=== PATIENT | female | born 1990 | race Caucasian/White ===

== ENCOUNTER 2019-03-09 13:50 | Emergency (ER) | payer OTHER ==
[2019-03-09 16:34] LABS: Absolute Lymphocytes (CBC) 2.4 K/uL (0.7-4.9); Basophils % 0.5 % (0-1.3); Hematocrit 43.9 % (36.0-45.0); Lymphocytes % 38.8 % (15.3-44.8); MPV 8.3 fL (7.6-11.3); RBC Red Blood Cell Count 4.89 M/uL (3.86-4.86)
[2019-03-09 16:52] LABS: ALT/SGPT 25 U/L (12-78); AST/SGOT 24 U/L (15-37); Albumin 4.1 g/dL (3.4-5.0); Alkaline Phosphatase 68 U/L (45-117); BUN Blood Urea Nitrogen 15 mg/dL (7-18); Bicarbonate 26 mmol/L (21-32); Bilirubin Direct 0.1 mg/dL (0-0.2); Bilirubin Total 0.3 mg/dL (0.2-1.0); Glucose Level 85 mg/dL (74-106); Magnesium 2.1 mg/dL (1.8-2.4); NT PRO-BNP 19 pg/mL (<125); Protein, Total 8.1 g/dL (6.4-8.2); Sodium Level 141 mmol/L (136-145); Troponin (Emerg Dept Use Only) < 0.02 ng/mL (0.0-0.045)
--- NOTE | 2019-03-09 16:57 | EKG ---
Test Date: 2019-03-09 Test Time: 16:21:00 Compliance Tester: MICHAEL MEASUREMENT RESULTS: Intervals: Rate: 73 ME: 152 QRSD: 84 QT: 368 QTc: 405 [place]: P: 31 ME: 152 QRS: 51 T: 20 INTERPRETIVE STATEMENTS: Normal sinus rhythm with sinus arrhythmia Normal ECG Compared to ECG 08/12/1991 11:50:00 No significant changes Electronically Signed On 03-09-19 16:56:38 CDT by Luther Moore
--- NOTE | 2019-03-09 17:05 | RAD REPORT ---
EXAM DESCRIPTION: RAD - Chest Single View - 03/09/2019 4:22 pm CLINICAL HISTORY: Chest pain, left-sided chest and shoulder pain COMPARISON: None. TECHNIQUE: AP portable chest image was obtained 1618 hours . FINDINGS: Lungs are clear. Heart and vasculature are normal. No measurable pleural effusion and no p neumothorax. No acute bony abnormality seen. No acute aortic findings suspected. IMPRESSION: No acute cardiopulmonary process.
--- NOTE | 2019-03-09 17:35 | ER ---
Nurse's Notes [facility] Name: Kassy Callahan Age: 28 yrs Sex: Female : 1990 Arrival Date: 03/09/2019 Time: 13:52 Bed 19 Private MD: Diagnosis: Pain in left shoulder;Pain in left upper arm Presentation: 03/09 14:07 Presenting complaint: Intermittent sharp pain in left shoulder blade that radiates to hb left side of neck, left arm and hand since yesterday. Transition of care: patient was not received from another setting of care. Onset of symptoms was March 08, 2019. Risk Assessment: Do you want to hurt yourself or someone else? Patient reports no desire to harm self or others. Initial Sepsis Screen: Does the patient meet any 2 criteria? No. Patient's initial sepsis screen is negative. Does the patient have a suspected source of infection? No. Patient's initial sepsis screen is negative. Care prior to arrival: None. 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 - Social history:: Smoking status: Patient/guardian denies using tobacco. - Ebola Screening: : No symptoms or risks identified at this time. Screenin:20 Abuse screen: Denies threats or abuse. Denies injuries from another. Nutritional ca1 screening: No deficits noted. Tuberculosis screening: No symptoms or risk factors identified. Fall Risk None identified. Assessment: 14:20 General: Appears in no apparent distress. comfortable, Behavior is calm, cooperative, ca1 appropriate for age. Pain: Complains of pain in left scapular area Pain radiates to left sternocleidomastoid, L shoulder Pain currently is 4 out of 10 on a pain scale. at worst was 8 out of 10 on a pain scale. Quality of pain is described as sharp, Pain began 1 day ago. Is intermittent. Neuro: Level of Consciousness is awake, alert, obeys commands, Oriented to person, place, time, situation, Appropriate for age. Cardiovascular: Heart tones S1 S2 present Capillary refill < 3 seconds Patient's skin is warm and dry. Pulses are all present. Respiratory: Airway is patent Respiratory effort is even, unlabored, Respiratory pattern is regular, symmetrical, Breath sounds are clear bilaterally. GI: Abdomen is flat, non-distended, Bowel sounds present X 4 quads. Abd is soft and non tender X 4 quads. : No deficits noted. No signs and/or symptoms were reported regarding the genitourinary system. EENT: No deficits noted. No signs and/or symptoms were reported regarding the EENT system. Derm: Skin is intact, is healthy with good turgor, Skin is pink, warm \T\ dry. Musculoskeletal: Circulation, motion, and sensation intact. Capillary refill < 3 seconds, Range of motion: intact in all extremities. 15:40 Reassessment: Patient appears in no apparent distress at this time. Patient and/or ca1 family updated on plan of care and expected duration. Pain level reassessed. Patient is alert, oriented x 3, equal unlabored respirations, skin warm/dry/pink. 16:56 Reassessment: Patient appears in no apparent distress at this time. Patient and/or ca1 family updated on plan of care and expected duration. Pain level reassessed. Patient is alert, oriented x 3, equal unlabored respirations, skin warm/dry/pink. 17:47 Reassessment: Patient appears in no apparent distress at this time. Patient is alert, ca1 oriented x 3, equal unlabored respirations, skin warm/dry/pink. Dr. Fernando at bedside. Vital Signs: 14:09 BP 142 / 96; Pulse 85; Resp 16; Temp 97.9; Pulse Ox 100% on R/A; Weight 83.91 kg; hb Height 5 ft. 5 in. (165.10 cm); Pain 5/10; 14:20 BP 133 / 99; Pulse 76; Resp 17 S; Pulse Ox 99% on R/A; ca1 15:46 BP 134 / 92; Pulse 77; Resp 16; Pulse Ox 100% on R/A; mh5 16:56 BP 145 / 105; Pulse 95; Resp 17; Temp 98.1(O); Pulse Ox 99% on R/A; mh5 17:47 BP 135 / 84; Pulse 87; Resp 17 S; Pulse Ox 98% on R/A; ca1 14:09 Body Mass Index 30.79 (83.91 kg, 165.10 cm) ED Course: 13:52 Patient arrived in ED. rg4 14:09 Triage completed. hb 14:10 Arm band placed on. hb 14:11 Nichole Barajas, JOSE is Primary Nurse. ca1 14:19 Richy Fernando MD is Attending Physician. kdr 14:20 Patient has correct armband on for positive identification. Bed in low position. Call ca1 light in reach. Side rails up X 1. Pulse ox on. NIBP on. Warm blanket given. 14:20 No provider procedures requiring assistance completed. ca1 16:12 Inserted saline lock: 22 gauge in right antecubital area, using aseptic technique. ca1 Blood collected. 16:27 XRAY Chest (1 view) In Process Unspecified. EDMS 16:44 EKG done, by archives technician. reviewed by Richy Fernando MD. 3 17:51 IV discontinued, intact, bleeding controlled, No redness/swelling at site. Pressure ca1 dressing applied. Administered Medications: No medications were administered Outcome: 17:34 Discharge ordered by . kdr 17:51 Discharged to home ambulatory. ca1 17:51 Condition: stable 17:51 Discharge instructions given to patient, Instructed on discharge instructions, follow up and referral plans. no driving heavy equipment, medication usage, Demonstrated understanding of instructions, follow-up care, medications, Prescriptions given X 1. 17:51 Patient left the ED. ca1 Signatures: Dispatcher [employer] EDCA Richy Fernando MD MD kdr Baxter, Heather, RN RN Rosalva Kimbrough rg4 Gloria Dias [facility] [place] sm3 Nichole Barajas RN RN ca1
--- NOTE | 2019-03-09 17:35 | EDPHYS ---
Physician Documentation [facility] Name: Kassy Callahan Age: 28 yrs Sex: Female : 1990 Arrival Date: 03/09/2019 Time: 13:52 Bed 19 Private MD: ED Physician Richy Fernando HPI: 03/09 18:07 This 28 yrs old Female presents to ER via Ambulatory with complaints of kdr Shoulder Pain, Arm Pain. 18:07 The patient or guardian complains of pain. left shoulder and left trapezius - left kdr upper arm and shoulder. Context: The problem was sustained at home, at work, resulted from an unknown reason, The patient reports no decreased range of motion. The patient reports no obvious deformity. Onset: The symptoms/episode began/occurred The patient has had intermittent shooting pain in her left shoulder and upper arm. These episodes started yesterday evening and she has had three total episodes since then., She denies SOB, diaphoresis but has had some mild nausea when the pain is at it's worst. The pain had improved though not completely resolved on presentation to the ED. Modifying factors: the symptoms are alleviated by nothing. The symptoms are aggravated by nothing. Associated signs and symptoms: The patient has no apparent associated signs or symptoms. Severity of symptoms: At their worst the symptoms were moderate, severe, earlier today, in the emergency department the symptoms have improved, markedly. Treatment prior to arrival includes: over the counter medications. The patient has not experienced similar symptoms in the past. The patient has not recently seen a physician. 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 - Social history:: Smoking status: Patient/guardian denies using tobacco. - Ebola Screening: : No symptoms or risks identified at this time. ROS: 18:07 Constitutional: Negative for fever, chills, and weight loss, Cardiovascular: Negative kdr for chest pain, palpitations, and edema, Respiratory: Negative for shortness of breath, cough, wheezing, and pleuritic chest pain, Abdomen/GI: Negative for abdominal pain, nausea, vomiting, diarrhea, and constipation, Back: Negative for injury and pain, : Negative for injury, bleeding, discharge, and swelling, Skin: Negative for injury, rash, and discoloration, Neuro: Negative for headache, weakness, numbness, tingling, and seizure activity. 18:07 MS/extremity: Positive for pain, Negative for abrasion, bite, contusion, decreased range of motion, swelling, tenderness, tingling. Exam: 18:07 Constitutional: This is a well developed, well nourished patient who is awake, alert, kdr and in no acute distress. Head/Face: Normocephalic, atraumatic. Eyes: Pupils equal round and reactive to light, extra-ocular motions intact. Lids and lashes normal. Conjunctiva and sclera are non-icteric and not injected. Cornea within normal limits. Periorbital areas with no swelling, redness, or edema. Neck: Trachea midline, no thyromegaly or masses palpated, and no cervical lymphadenopathy. Supple, full range of motion without nuchal rigidity, or vertebral point tenderness. No Meningismus. Chest/axilla: Normal chest wall appearance and motion. Nontender with no deformity. No lesions are appreciated. Cardiovascular: Regular rate and rhythm with a normal S1 and S2. No gallops, murmurs, or rubs. Normal PMI, no JVD. No pulse deficits. Respiratory: Lungs have equal breath sounds bilaterally, clear to auscultation and percussion. No rales, rhonchi or wheezes noted. No increased work of breathing, no retractions or nasal flaring. Abdomen/GI: Soft, non-tender, with normal bowel sounds. No distension or tympany. No guarding or rebound. No evidence of tenderness throughout. Back: No spinal tenderness. No costovertebral tenderness. Full range of motion. Skin: Warm, dry with normal turgor. Normal color with no rashes, no lesions, and no evidence of cellulitis. MS/ Extremity: Pulses equal, no cyanosis. Neurovascular intact. Full, normal range of motion. Neuro: Awake and alert, GCS 15, oriented to person, place, time, and situation. Cranial nerves II-XII grossly intact. Motor strength 5/5 in all extremities. Sensory grossly intact. Cerebellar exam normal. Normal gait. Psych: Awake, alert, with orientation to person, place and time. Behavior, mood, and affect are within normal limits. Vital Signs: 14:09 BP 142 / 96; Pulse 85; Resp 16; Temp 97.9; Pulse Ox 100% on R/A; Weight 83.91 kg; hb Height 5 ft. 5 in. (165.10 cm); Pain 5/10; 14:20 BP 133 / 99; Pulse 76; Resp 17 S; Pulse Ox 99% on R/A; ca1 15:46 BP 134 / 92; Pulse 77; Resp 16; Pulse Ox 100% on R/A; mh5 16:56 BP 145 / 105; Pulse 95; Resp 17; Temp 98.1(O); Pulse Ox 99% on R/A; mh5 17:47 BP 135 / 84; Pulse 87; Resp 17 S; Pulse Ox 98% on R/A; ca1 14:09 Body Mass Index 30.79 (83.91 kg, 165.10 cm) hb MDM: 17:34 Patient medically screened. kdr 18:07 Data reviewed: vital signs, nurses notes, lab test result(s), EKG, radiologic studies. kdr Counseling: I had a detailed discussion with the patient and/or guardian regarding: the historical points, exam findings, and any diagnostic results supporting the discharge/admit diagnosis, lab results, radiology results, the need for outpatient follow up. 03/09 16:03 Order name: Basic Metabolic Panel; Complete Time: 17:27 [facility] 03/09 16:03 Order name: CBC with Diff; Complete Time: 17:27 [facility] 03/09 16:03 Order name: LFT's; Complete Time: 17:27 [facility] 03/09 16:03 Order name: Magnesium; Complete Time: 17:27 [facility] 03/09 16:03 Order name: NT PRO-BNP; Complete Time: 17:27 [facility] 03/09 16:03 Order name: PT-INR; Complete Time: 17:27 [facility] 03/09 16:03 Order name: Troponin (emerg Dept Use Only); Complete Time: 17:27 [facility] 03/09 16:03 Order name: XRAY Chest (1 view); Complete Time: 17:27 [facility] 03/09 16:03 Order name: EKG; Complete Time: 16:04 [facility] 03/09 16:03 Order name: Cardiac monitoring; Complete Time: 16:16 kdr 03/09 16:03 Order name: EKG - Nurse/Tech; Complete Time: 16:16 kdr 03/09 16:03 Order name: IV Saline Lock; Complete Time: 16:16 kdr 03/09 16:03 Order name: Labs collected and sent; Complete Time: 16:16 kdr 03/09 16:03 Order name: O2 Per Protocol; Complete Time: 16:16 kdr 03/09 16:03 Order name: O2 Sat Monitoring; Complete Time: 16:16 kdr Administered Medications: No medications were administered Disposition: 03/09/19 17:34 Discharged to Home. Impression: Pain in left shoulder, Pain in left upper arm. - Condition is Stable. - Discharge Instructions: Musculoskeletal Pain, Pain Without a Known Cause, Shoulder Pain, Shoulder Pain, [id number]. - Prescriptions for Tramadol 50 mg Oral Tablet - take 1 tablet by ORAL route every 8 hours as needed; 12 tablet. - Medication Reconciliation Form, Thank You Letter form. - Follow up: Private Physician; When: 2 - 3 days; Reason: If symptoms return, Further diagnostic work-up, Recheck today's complaints, Continuance of care, Re-evaluation by your physician. - Problem is an acute exacerbation. - Symptoms have improved. Signatures: Dispatcher [employer] EDMS Richy Fernando MD MD [facility] Eli Hilton RN RN Nichole Barajas RN RN ca1 Corrections: (The following items were deleted from the chart) 17:51 17:34 03/09/2019 17:34 Discharged to Home. Impression: Pain in left shoulder; Pain in ca1 left upper arm. Condition is Stable. Forms are Medication Reconciliation Form, Thank You Letter, Antibiotic Education, Prescription Opioid Use. Follow up: Private Physician; When: 2 - 3 days; Reason: If symptoms return, Further diagnostic work-up, Recheck today's complaints, Continuance of care, Re-evaluation by your physician. Problem is an acute exacerbation. Symptoms have improved. kdr
[2019-03-09 18:19] VITALS: TEMP 98.1
[2019-03-09 18:20] VITALS: BP 135/84; O2SAT 98
== END 2019-03-09 17:51 | disposition home or self-care (01) ==
LOC: ER 13:50
DX: M79.622 Pain in left upper arm (principal); Z91.013 Allergy to seafood
CPT/HCPCS: 36415; 71045; 80048; 80076; 83735; 83880; 84484; 85025; 85610; 93005; 99284

== ENCOUNTER 2019-09-04 09:55 | Emergency (ER) | payer OTHER ==
[2019-09-04] MEDS ORDERED: MAGNE/ALUM HYDROXD 30 ML UCUP ONE (10:20)
[2019-09-04] MEDS ORDERED: LIDOCAINE VISCOUS 2% SOLN 15 ML UDC ONE (10:21)
[2019-09-04] MEDS ORDERED: ONDANSETRON 4 MG/2 ML VIAL ONE (10:21)
[2019-09-04 10:35] LABS: Urine Blood NEGATIVE (NEG); Urine Glucose NEGATIVE (NEG); Urine Protein NEGATIVE (NEG); Urine Specific Gravity 1.025 (1.005-1.030)
[2019-09-04 10:56] LABS: Absolute Lymphocytes (CBC) 2.1 K/uL (0.7-4.9); Basophils % 0.2 % (0-1.3); Hematocrit 40.6 % (36.0-45.0); Lymphocytes % 26.6 % (15.3-44.8); MPV 8.5 fL (7.6-11.3); RBC Red Blood Cell Count 4.67 M/uL (3.86-4.86)
[2019-09-04 11:08] LABS: ALT/SGPT 36 U/L (12-78); AST/SGOT 25 U/L (15-37); Albumin 3.7 g/dL (3.4-5.0); Alkaline Phosphatase 66 U/L (45-117); BUN Blood Urea Nitrogen 14 mg/dL (7-18); Bicarbonate 24 mmol/L (21-32); Bilirubin Direct < 0.1 mg/dL (0-0.2); Bilirubin Total 0.2 mg/dL (0.2-1.0); Glucose Level 91 mg/dL (74-106); Lipase 142 U/L (73-393); Potassium 4.1 mmol/L (3.5-5.1); Protein, Total 7.5 g/dL (6.4-8.2); Sodium Level 138 mmol/L (136-145)
--- NOTE | 2019-09-04 11:14 | ER ---
Nurse's Notes [facility] Name: Kassy Callahan Age: 28 yrs Sex: Female : 1990 Arrival Date: 09/04/2019 Time: 09:58 Bed 13 Private MD: Diagnosis: Upper abdominal pain, unspecified Presentation: 09/03 10:09 Chief complaint: Patient states: Intermittent, sharp epigastric pain that radiates ss towards R shoulder and R side of back that began at 0130 this morning. Coronavirus screen: The patient has NOT traveled to a country currently being monitored by the [facility] within the last 14 days. Ebola Screen: Patient denies exposure to infectious person. Patient denies travel to an Ebola-affected area in the 21 days before illness onset. Initial Sepsis Screen: Does the patient meet any 2 criteria? No. Patient's initial sepsis screen is negative. Does the patient have a suspected source of infection? No. Patient's initial sepsis screen is negative. Risk Assessment: Do you want to hurt yourself or someone else? Patient reports no desire to harm self or others. 10:09 Method Of Arrival: Ambulatory ss 10:09 Acuity: MARION 3 ss Historical: - Allergies: 10:12 SHELLFISH; ss - Home Meds: 10:12 control [Active]; ss - PMHx: 10:12 PCOS; Protruding Discs L4-L5; ss - PSHx: 10:12 Appendectomy; ss - Immunization history:: Adult Immunizations up to date. - Social history:: Smoking status: Patient denies any tobacco usage or history of. Screenin:00 Abuse screen: Denies threats or abuse. Denies injuries from another. Nutritional ph screening: No deficits noted. Tuberculosis screening: No symptoms or risk factors identified. Fall Risk None identified. Assessment: 11:00 Pain: Complains of pain in epigastric area Pain radiates to right upper quadrant. ph Neuro: Level of Consciousness is awake, alert, obeys commands, Oriented to person, place, time, situation. Cardiovascular: Capillary refill < 3 seconds in bilateral fingers Patient's skin is warm and dry. Respiratory: Airway is patent Respiratory effort is even, unlabored, Respiratory pattern is regular, symmetrical. GI: Bowel sounds present X 4 quads. Abd is soft X 4 quads Reports upper abdominal pain, epigastric pain, nausea, vomiting, Patient currently denies constipation, diarrhea. Derm: Skin is intact, is healthy with good turgor, Skin is pink, warm \T\ dry. Musculoskeletal: Circulation, motion, and sensation intact. Range of motion: intact in all extremities. Vital Signs: 10:07 BP 144 / 98; Pulse 108; Resp 14; Temp 97.0(TE); Pulse Ox 98% on R/A; Weight 83.91 kg; Height 5 ft. 5 in. (165.10 cm); Pain 3/10; 10:45 BP 138 / 103; Pulse 95; Resp 15; Temp 97.2(TE); Pulse Ox 98% ; mh5 10:07 Body Mass Index 30.79 (83.91 kg, 165.10 cm) ED Course: 09:58 Patient arrived in ED. mr 10:00 Paul Paiz PA is PHCP. jr8 10:00 Rosalino Lentz MD is Attending Physician. jr8 10:07 Arm band placed on right wrist. 10:12 Kesha Mcmanus, RN is Primary Nurse. ph 10:12 Triage completed. 10:42 Basic Metabolic Panel Sent. [facility] 10:42 CBC with Diff Sent. [facility] 10:42 Creatinine for Radiology Sent. [facility] 10:43 Hepatic Function Sent. 5 10:43 Lipase Sent. 5 10:43 Lab(s) recollected, by me, sent to lab. Inserted saline lock: 22 gauge in right 5 antecubital area, using aseptic technique. Blood collected. 10:44 Patient has correct armband on for positive identification. Bed in low position. Call [facility] light in reach. Side rails up X 1. Warm blanket given. Pulse ox on. NIBP on. 11:06 Ultrasound completed. Patient tolerated well. sg3 11:07 US Abdomen Limited In Process Unspecified. EDMS 11:13 Sonu Browning MD is Referral Physician. jr8 11:29 No provider procedures requiring assistance completed. IV discontinued, intact, ss bleeding controlled, No redness/swelling at site. Pressure dressing applied. Administered Medications: 10:45 Drug: Zofran (Ondansetron) 4 mg Route: IVP; Site: right antecubital; ph 11:15 Follow up: Response: No adverse reaction ph 10:45 Drug: GI Cocktail without - (Maalox Suspension 30 ml, Lidocaine Liquid 2 % 15 ph ml) Route: PO; 11:15 Follow up: Response: No adverse reaction ph Outcome: 11:14 Discharge ordered by MD. ball 11:29 Discharged to home ambulatory, with family. ss 11:29 Condition: good 11:29 Discharge instructions given to patient, family, Instructed on discharge instructions, follow up and referral plans. medication usage, Demonstrated understanding of instructions, follow-up care, medications, Prescriptions given X 2. 11:30 Patient left the ED. ss Signatures: Dispatcher [employer] [facility] Akhil Sherice PelaezElisha morrison, RN RN ss Paul Paiz PA PA jr8 Hall, Patricia, RN RN Gloria Dias [facility] Minda Kirkland [facility]
--- NOTE | 2019-09-04 11:14 | EDPHYS ---
Physician Documentation [facility] Name: Kassy Callahan Age: 28 yrs Sex: Female : 1990 Arrival Date: 09/04/2019 Time: 09:58 Bed 13 Private MD: RJ Physician Rosalino Lentz HPI: 09/03 10:52 This 28 yrs old Female presents to ER via Ambulatory with complaints of jr8 Abdominal Pain, Nausea. 10:52 The patient presents with abdominal pain in the upper abdomen, in the right upper jr8 quadrant. Onset: The symptoms/episode began/occurred acutely, last night. The symptoms radiate to right back, the right shoulder. Associated signs and symptoms: Pertinent positives: nausea. The symptoms are described as shooting, stabbing. Modifying factors: The symptoms are alleviated by nothing, the symptoms are aggravated by food. Severity of pain: At its worst the pain was moderate in the emergency department the pain is unchanged. The patient has not experienced similar symptoms in the past. The patient has not recently seen a physician. Historical: - Allergies: 10:12 SHELLFISH; ss - Home Meds: 10:12 control [Active]; ss - PMHx: 10:12 PCOS; Protruding Discs L4-L5; ss - PSHx: 10:12 Appendectomy; ss - Immunization history:: Adult Immunizations up to date. - Social history:: Smoking status: Patient denies any tobacco usage or history of. ROS: 10:52 Eyes: Negative for injury, pain, redness, and discharge, ENT: Negative for injury, jr8 pain, and discharge, Neck: Negative for injury, pain, and swelling, Cardiovascular: Negative for chest pain, palpitations, and edema, Respiratory: Negative for shortness of breath, cough, wheezing, and pleuritic chest pain, Back: Negative for injury and pain, MS/Extremity: Negative for injury and deformity, Skin: Negative for injury, rash, and discoloration, Neuro: Negative for headache, weakness, numbness, tingling, and seizure. 10:52 Abdomen/GI: Positive for abdominal pain, nausea, Negative for vomiting, diarrhea, constipation, abdominal cramps, abdominal distension. Exam: 10:52 Eyes: Pupils equal round and reactive to light, extra-ocular motions intact. Lids and jr8 lashes normal. Conjunctiva and sclera are non-icteric and not injected. Cornea within normal limits. Periorbital areas with no swelling, redness, or edema. ENT: Nares patent. No nasal discharge, no septal abnormalities noted. Tympanic membranes are normal and external auditory canals are clear. Oropharynx with no redness, swelling, or masses, exudates, or evidence of obstruction, uvula midline. Mucous membranes moist. Neck: Trachea midline, no thyromegaly or masses palpated, and no cervical lymphadenopathy. Supple, full range of motion without nuchal rigidity, or vertebral point tenderness. No Meningismus. Cardiovascular: Regular rate and rhythm with a normal S1 and S2. No gallops, murmurs, or rubs. Normal PMI, no JVD. No pulse deficits. Respiratory: Lungs have equal breath sounds bilaterally, clear to auscultation and percussion. No rales, rhonchi or wheezes noted. No increased work of breathing, no retractions or nasal flaring. Back: No spinal tenderness. No costovertebral tenderness. Full range of motion. Skin: Warm, dry with normal turgor. Normal color with no rashes, no lesions, and no evidence of cellulitis. MS/ Extremity: Pulses equal, no cyanosis. Neurovascular intact. Full, normal range of motion. Neuro: Awake and alert, GCS 15, oriented to person, place, time, and situation. Cranial nerves II-XII grossly intact. Motor strength 5/5 in all extremities. Sensory grossly intact. Cerebellar exam normal. Normal gait. 10:52 Abdomen/GI: Inspection: abdomen appears normal, Bowel sounds: active, all quadrants, Palpation: soft, in all quadrants, moderate abdominal tenderness, in the epigastric area and right upper quadrant, mass, is not appreciated, rebound tenderness, is not appreciated, voluntary guarding, is elicited in all quadrants, involuntary guarding, is not appreciated, no appreciated organomegaly, Indicators: McBurney's point is not tender, Tony's sign is positive, Rovsing's sign is negative, Liver: tenderness, is not appreciated. Vital Signs: 10:07 BP 144 / 98; Pulse 108; Resp 14; Temp 97.0(TE); Pulse Ox 98% on R/A; Weight 83.91 kg; ss Height 5 ft. 5 in. (165.10 cm); Pain 3/10; 10:45 BP 138 / 103; Pulse 95; Resp 15; Temp 97.2(TE); Pulse Ox 98% ; mh5 10:07 Body Mass Index 30.79 (83.91 kg, 165.10 cm) ss MDM: 10:00 Patient medically screened. 11:12 Differential diagnosis: cholecystitis, Cholelithiasis, diverticulitis, gastritis, jr8 gastroesophageal reflux disease, Hepatitis, Irritable bowel syndrome, non-specific abd pain, pancreatitis, Peptic Ulcer Disease, Perf. Duodenal Ulcer, Perf. Gastric Ulcer. Data reviewed: vital signs, nurses notes, lab test result(s), radiologic studies, ultrasound. Data interpreted: Pulse oximetry: on room air is 98 %. Interpretation: normal. Counseling: I had a detailed discussion with the patient and/or guardian regarding: the historical points, exam findings, and any diagnostic results supporting the discharge/admit diagnosis, lab results, radiology results, the need for outpatient follow up, a general surgeon, to return to the emergency department if symptoms worsen or persist or if there are any questions or concerns that arise at home. Response to treatment: the patient's symptoms have markedly improved after treatment. Special discussion: Based on the patient's Hx, exam, and Dx evaluation, there is no indication for emergent surgery or inpatient Tx. It is understood by the patient/guardian that if the Sx's persist or worsen they need to return immediately for re-evaluation. 09/03 10:04 Order name: Basic Metabolic Panel; Complete Time: 11:09/03 10:04 Order name: CBC with Diff; Complete Time: 11: 09/03 10:04 Order name: Creatinine for Radiology; Complete Time: 11:09/03 10:04 Order name: Hepatic Function; Complete Time: 11:10 09/03 10:04 Order name: Lipase; Complete Time: 11:10 09/03 10:24 Order name: Urine Dipstick--Ancillary (enter results); Complete Time: 10:40 09/03 10:04 Order name: IV Saline Lock; Complete Time: 10:43 09/03 10:04 Order name: Labs collected and sent; Complete Time: 10:43 09/03 10:04 Order name: Urine Test (obtain specimen); Complete Time: 10:42 09/03 10:04 Order name: Urine Dipstick-Ancillary (obtain specimen); Complete Time: 10:42 [facility] 09/03 10:04 Order name: US Abdomen Limited; Complete Time: 11:18 09/03 10:24 Order name: Urine --Ancillary (enter results); Complete Time: 10:40 eb Administered Medications: 10:45 Drug: Zofran (Ondansetron) 4 mg Route: IVP; Site: right antecubital; ph 11:15 Follow up: Response: No adverse reaction ph 10:45 Drug: GI Cocktail without - (Maalox Suspension 30 ml, Lidocaine Liquid 2 % 15 ph ml) Route: PO; 11:15 Follow up: Response: No adverse reaction ph Disposition: 09/04 09:37 Co-signature as Attending Physician, Rosalino Lentz MD I agree with the assessment and pina plan of care. Disposition: 09/04/19 11:14 Discharged to Home. Impression: Upper abdominal pain, unspecified. - Condition is Stable. - Discharge Instructions: Abdominal Pain, Adult. - Prescriptions for omeprazole 40 mg Oral capsule,delayed release(DR/EC) - take 1 capsule by ORAL route once daily before a meal; 30 capsule. Zofran 4 mg Oral Tablet - take 1 tablet by ORAL route every 12 hours As needed; 20 tablet. - Medication Reconciliation Form, Thank You Letter, Antibiotic Education, Prescription Opioid Use form. - Follow up: Sonu Browning MD; When: 5 - 6 days; Reason: Recheck today's complaints, Continuance of care, Re-evaluation by your physician. - Problem is new. - Symptoms have improved. Signatures: Dispatcher [employer] Rosalino Baer MD MD cha Smirch, Shelby, RN RN ss Paul Paiz, PA PA jr8 Kesha Mcmanus RN RN ph Corrections: (The following items were deleted from the chart) 09/03 11:30 11:14 09/04/2019 11:14 Discharged to Home. Impression: Upper abdominal pain, ss unspecified. Condition is Stable. Forms are Medication Reconciliation Form, Thank You Letter, Antibiotic Education, Prescription Opioid Use. Follow up: Sonu Browning; When: 5 - 6 days; Reason: Recheck today's complaints, Continuance of care, Re-evaluation by your physician. Problem is new. Symptoms have improved. jr8
--- NOTE | 2019-09-04 11:16 | RAD REPORT ---
EXAM DESCRIPTION: US - Abdomen Exam Limited - 09/04/2019 11:06 am CLINICAL HISTORY: r/o GB;Abd pain COMPARISON: Stone Protocol dated 03/20/2017 FINDINGS: No gallstones are identified in a normal size gallbladder. Sludge is present. There is no wall thickening or pericholecystic fluid. No common duct stone or biliary tree dilatation identified. Fatty infiltration of the liver is present with sparing at the gallbladder fossa. IMPRESSION: Gallbladder sludge is present with no gallstones identifiable. No other gallbladder or biliary tree finding. Fatty infiltration of the liver.
[2019-09-04 11:39] VITALS: BP 138/103; TEMP 97.2; O2SAT 98
== END 2019-09-04 11:30 | disposition home or self-care (01) ==
LOC: ER 09:55
DX: R10.10 Upper abdominal pain, unspecified (principal); Z91.013 Allergy to seafood
CPT/HCPCS: 85025; 80048; 36415; 81025; 80076; 81003; 83690; 76705; 96374; 99284; J2405

== ENCOUNTER 2019-10-24 07:10 | Day surgery (SDC) | payer OTHER ==
[2019-10-24 07:37] LABS: Specific Gravity > 1.030 (1.005-1.030)
[2019-10-24] MEDS: Ringers Lactate 1,000 ML IV ONE (07:40)
[2019-10-24] MEDS ORDERED: CEFOXITIN/SWI 1gm 1 GM/10 ML SYR ONE (07:52)
[2019-10-24] MEDS ORDERED: MIDAZOLAM HCL 2 MG/2 ML INJ ONE (08:18)
[2019-10-24] MEDS ORDERED: LIDOCAINE 2% MPF 5 ML VIAL ONE (08:18)
[2019-10-24] MEDS ORDERED: FENTANYL CITR 100 MCG/2 ML ONE (08:18)
[2019-10-24] MEDS ORDERED: KETOROLAC 30 MG/ML INJ ONE (08:18)
[2019-10-24] MEDS ORDERED: dexAMETHasone 10 MG/ML VIAL ONE (08:18)
[2019-10-24] MEDS ORDERED: ONDANSETRON 4 MG/2 ML VIAL ONE (08:18)
[2019-10-24] MEDS ORDERED: propofoL 200 MG/20 ML VIAL IV ONE (08:18)
[2019-10-24] MEDS ORDERED: ROCURONIUM 50 MG/5 ML VIAL IV ONE (08:19)
[2019-10-24] MEDS ORDERED: BUPIVACA 0.25%/EPI 0.0005%/PF 30 ML VIAL ONE (08:22)
[2019-10-24] MEDS ORDERED: EPHEDRINE SULF 50 MG/ML VIAL ONE (09:16)
[2019-10-24] MEDS ORDERED: GLYCOPYRROLATE 0.2 MG/ML SYR ONE (09:54)
[2019-10-24] MEDS ORDERED: NEOSTIGMINE 1 MG/ML -5 ML ONE (09:54)
--- NOTE | 2019-10-24 10:01 | P.OP ---
Preoperative diagnosis: Chronic Cholecystitis Postoperative diagnosis: Chronic Cholecystitis Primary procedure: Laparoscopic Cholecystectomy Anesthesia: GETA + Local Estimated blood loss: <5cc Specimen: Gallbladder Findings: Thick fibrous adhesions @ hartmanns, triangle of calot Complications: None Transferred to: Recovery Room Condition: Good
[2019-10-24] MEDS ORDERED: Ringers Lactate 1,000 ML IV ONE (10:13)
[2019-10-24] MEDS: HYDROMORPHONE HCL 1 MG/ML INJ ONE ×6 (10:29→10:58)
[2019-10-24] MEDS ORDERED: PROMETHAZINE INJ 25 MG/ML AMP ONE (10:57)
[2019-10-24] MEDS ORDERED: HYDROCODONE/APAP 5/325 MG TAB ONE (11:42)
[2019-10-24 12:45] VITALS: BP 137/84; TEMP 96.9; O2SAT 100
--- NOTE | 2019-10-24 21:25 | OP ---
Date of Procedure: 10/24/2019 Surgeon: Sonu Browning MD, Preoperative Diagnosis: Chronic cholecystitis. Postoperative Diagnosis: Chronic cholecystitis. Procedure Performed: Laparoscopic cholecystectomy. Anesthesia: General endotracheal plus local 0.5% Marcaine with epinephrine. Estimated Blood Loss: Less than 5 mL. Specimen: Gallbladder. 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 Complications: None. Disposition: Transferred recovery in good condition. Procedure In Detail: After informed was obtained, patient was brought to the operating room, prepped and draped in the usual sterile fashion. After adequate anesthesia achieved, a supraumbilical area was anesthetized with 0.5% Marcaine and sharply incised and a 5 mm trocar was introduced in the abdom en without evidence of complication. Insufflation was obtained to 15 mmHg at this time. There was n o injury to vital structures upon entry the abdomen. Two additional trocar sites were chosen, one in the epigastrium, one in the right upper quadrant. This was similarly anesthetized, sharply incised. A 5 mm trocar was introduced in the abdomen without evidence of complication. The umbilical trocar was then up-sized to a 12 mm under direct visualization without evidence of complication. The patie nt was positioned head up right-side up position. Omental attachments, which were found to be thick and fibrous covering the anterior surface of the gallbladder were taken down using electrocautery and blunt dissection down to the Senia pouch. The gallbladder was found to have thick fibrous adhesi ons between the omentum as well as the stomach and otherwise was encased in very thick fibrous adhesi ons requiring meticulous dissection. The dissection continued down to the Senia pouch until 2 str uctures were identified entering the gallbladder. These were identified as the cystic duct and cysti c artery. Critical view of safety was obtained at this time with a posterior window clear showing on ly liver and in the correct anatomic orientation with gentle traction. These were circumferentially skeletonized until completely clear. 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 This was quite long in i ts course and was examined and found to be the only arterial supply entering the gallbladder. At thi s point, as such, the 2 structures identified as the cystic duct and cystic artery were doubly clippe d on the proximal side and singly on the distal side, both the cystic duct and cystic artery. These were then ligated at this point. There was some spillage of bile from the residual gallbladder sac a s the clip placed on this gallbladder side had pulled off by traction. This bile was easily suctione d up at this point and the gallbladder was removed the hepatic fossa without complication. There was no additional hemostatic measures required. The abdomen was copiously irrigated multiple times and completely clear and prolonged examination of the cystic duct and cystic artery stumps showed no leak age of either blood or bile. The area was copiously irrigated multiple times and suctioned out to co mpletely dry once again, inspected one last time for hemostasis under desufflation pressure. Everyth ing was found to be in good standing and as such, an EndoCatch bag was placed and the gallbladder was removed, the umbilical trocar. Re-insufflation was obtained at this time. There was inspected one last time. No additional hemostatic measures required. There was no spillage of bile. The patient positioned in neutral position at this point and the umbilical trocar was removed. The umbilical tro car site was closed using a Joe-Armando suture passer and 0-Vicryl in fashion, good approximation of tissues and the remaining trocars were removed under direct visualization without evidence of com plication under desufflation pressure. All skin incisions were then copiously irrigated, closed with a 4-0 Monocryl in a running fashion. Dermabond placed over top. Patient tolerated the procedure we ll without evidence of complication and transferred to PACU in good condition. All counts were correct at the e nd of case. TK/MODL Voice ID: [id number] Report ID: [id number]
== END 2019-10-24 12:30 | disposition home or self-care (01) ==
LOC: OR 07:10
PROVIDERS: ATTEND Surgery
PROC: 0FT44ZZ Resection of Gallbladder, Percutaneous Endoscopic Approach (ICD-10-PCS; principal; 2019-10-24 08:30)
DX: K80.10 Calculus of gallbladder with chronic cholecystitis without obstruction (principal); Z11.59 Encounter for screening for other viral diseases; Z91.013 Allergy to seafood
CPT/HCPCS: 81025; 88304; 47562; J2704; J2550; J2250; J3010; J1100; J1170 ×3; J2710; J7120 ×2; J2405

== ENCOUNTER 2022-02-14 07:00 | Day surgery (SDC) | payer OTHER ==
[2022-02-13 12:14] LABS: Specific Gravity > 1.030 (1.005-1.030)
[2022-02-13 12:23] LABS: SARS-CoV-2 Antigen Rapid Res Negative (Negative)
[2022-02-14] MEDS ORDERED: ACETAMINOPHEN 500 MG TAB ONE (07:16)
[2022-02-14] MEDS ORDERED: Ringers Lactate 1,000 ML IV ONE (07:16)
[2022-02-14] MEDS ORDERED: MIDAZOLAM HCL 2 MG/2 ML INJ ONE (07:18)
[2022-02-14] MEDS ORDERED: propofoL 200 MG/20 ML VIAL IV ONE (07:18)
[2022-02-14] MEDS ORDERED: FENTANYL CITR 100 MCG/2 ML ONE (07:18)
[2022-02-14] MEDS ORDERED: ROCURONIUM 50 MG/5 ML VIAL IV ONE (07:18)
[2022-02-14] MEDS ORDERED: dexAMETHasone 10 MG/ML VIAL ONE (07:19)
[2022-02-14] MEDS ORDERED: LIDOCAINE 1% MPF 5 ML VIAL ONE (07:19)
[2022-02-14] MEDS ORDERED: MORPHINE 10 MG/ML VIAL ONE (09:30)
--- NOTE | 2022-02-14 09:34 | P.OP ---
Date of Service: 02/14/22 Preoperative diagnosis: Recurrent acute tonsillitis, chronic tonsillitis, Postoperative diagnosis: Same Procedure: Tonsillectomy Surgeon: Lauren Walters MD Cutter Gas: None Anesthesia: General via endotracheal tube IV fluids: 500 ml crystalloid Estimated blood loss: Minimal, less than 5 mL Specimen: Bilateral tonsils Findings: Mildly scarred tonsils with deep crypts Implants: None Indication: patient with persistent symptoms and findings in spite of good medical management. Details of operation: The patient was brought to the operating room and placed under general anesthesia via oral endotracheal tube. The head of bed was turned 90 degrees. A shoulder roll was placed and the neck was extended. A head drape was applied. The McIvor mouthgag was placed and suspended from the Fan stand. The oxygen concentration was confirmed with the anesthesiologist and was less than 40%. Weight-based dexamethasone was administered by the anesthesiologist. The soft palate was palpated and there was no submucous cleft. A red rubber catheter was placed in the nose and the tip withdrawn through the mouth and secured to the head drape for retraction of the soft palate. The tonsils were noted to be moderate in size. The left tonsil was grasped with a straight Allis clamp. The Bovie electrocautery was used to incise the mucosa over the anterior pillar and identified the tonsillar capsule. The tonsil was dissected using cautery and blunt dissection until free from soft tissue attachments. A tonsil ball was placed to aid in hemostasis. The right tonsil was removed in a similar manner. The nasopharynx was examined with a laryngeal mirror. There was some scar consistent with history of adenoidectomy but no significant residual or regrowth of adenoid tissue. The tonsillar fossa's were injected with 0.5% Marcaine with epinephrine; a total of 3 milliliters was used. The oropharynx was irrigated with cold saline. After suctioning, a [place] sump orogastric tube was passed for decompression of the stomach. The red rubber catheter was removed and used to suction the oropharynx, nasopharynx, and nasal cavities. The McIvor mouthgag was removed. There was no evidence of injury to the teeth, lips, or tongue. The mandible was mobile. The patient was then awakened from anesthesia and extubated in the operating room, taken to the recovery room in stable condition. Disposition: The patient will be discharged home later today in the care of their family with written postoperative instructions and appropriate pain medications. They will follow-up in Dr. Walters's office in approximately 1 month. They are instructed to contact Dr. Walters's office for any bleeding or other concerns.
[2022-02-14] MEDS ORDERED: ONDANSETRON 4 MG/2 ML VIAL ONE (09:54)
[2022-02-14] MEDS ORDERED: HYDROCOD 2.5mg-ACETAMIN 108mg/5mL Soln ONE (11:05)
[2022-02-14 11:42] VITALS: BP 129/82; TEMP 97.2; O2SAT 98
== END 2022-02-14 11:30 | disposition home or self-care (01) ==
LOC: OR 07:00
PROVIDERS: ATTEND Otolaryngology
PROC: 0CTPXZZ Resection of Tonsils, External Approach (ICD-10-PCS; principal; 2022-02-14 08:45)
DX: J03.91 Acute recurrent tonsillitis, unspecified (principal); Z20.822 Contact with and (suspected) exposure to COVID-19
CPT/HCPCS: 36415; 81025; 88304; 87811; 42826; J2704; J2250; J3010; J1100; J7120; J2405

== ENCOUNTER 2022-04-07 08:15 | Emergency (ER) | payer OTHER ==
[2022-04-07 09:19] LABS: Absolute Lymphocytes (CBC) 1.7 K/uL (0.7-4.9); Hematocrit 42.7 % (36.0-45.0); Lymphocytes % 34.6 % (15.3-44.8); MCV 86.4 fL (80-100); MPV 7.7 fL (7.6-11.3); RBC Red Blood Cell Count 4.94 M/uL (3.86-4.86)
[2022-04-07] MEDS ORDERED: LIDOCAINE VISCOUS 2% SOLN 15 ML UDC ONE (09:36)
[2022-04-07] MEDS ORDERED: MAGNES/ALUMIN/SIMET 30ML UCUP ONE (09:36)
[2022-04-07 09:42] LABS: ALT/SGPT 24 U/L (12-78); AST/SGOT 19 U/L (15-37); Albumin 3.9 g/dL (3.4-5.0); Alkaline Phosphatase 59 U/L (45-117); BUN Blood Urea Nitrogen 14 mg/dL (7-18); Bicarbonate 25 mmol/L (21-32); Bilirubin Total 0.4 mg/dL (0.2-1.0); Glomerular Filtration Rate 107 ml/min (=/>90); Glucose Level 99 mg/dL (74-106); Lipase 123 U/L (73-393); Potassium 4.1 mmol/L (3.5-5.1); Protein, Total 7.4 g/dL (6.4-8.2); Sodium Level 140 mmol/L (136-145); Troponin High Sensitivity 3.3 pg/mL (<58.9)
[2022-04-07 09:43] LABS: Bilirubin Direct < 0.1 mg/dL (0-0.2)
--- NOTE | 2022-04-07 10:01 | EDPHYS ---
Physician Documentation [facility] Name: Kassy Callahan Age: 31 yrs Sex: Female : 1990 Arrival Date: 04/07/2022 Time: 08:19 Bed 5 Private MD: ED Physician Lauren Nice HPI: 04/07 08:48 This 31 yrs old Female presents to ER via Ambulatory with complaints of Epigastric [facility] Pain, acid reflux. 08:48 This is a 31-year-old female with a history of PCOS the presents emerged part with [facility] complaints of epigastric abdominal pain which radiates into her chest into the right side and into her back. Patient states of waking with this this morning. Patient presents most likely acid reflux. Still has some mild symptoms. Symptoms were much worse in onset. Advised by employer to get further evaluation.. Historical: - Allergies: 08:47 SHELLFISH; iw - PMHx: 08:47 PCOS; Protruding Discs L4-L5; iw - Immunization history:: Adult Immunizations unknown. - Social history:: Smoking status: unknown. ROS: 08:48 Constitutional: Negative for fever, chills, and weight loss. jmm 08:48 Cardiovascular: Positive for chest pain. 08:48 Respiratory: Positive for shortness of breath. 08:48 Abdomen/GI: Positive for abdominal pain. 08:48 All other systems are negative. Exam: 08:48 Constitutional: This is a well developed, well nourished patient who is awake, alert, jmm and in no acute distress. Head/Face: atraumatic. Eyes: EOMI, no conjunctival erythema appreciated ENT: Moist Mucus Membranes Neck: Trachea midline, Supple Chest/axilla: Normal chest wall appearance and motion. Cardiovascular: Regular rate and rhythm. No edema appreciated Respiratory: Normal respirations, no respiratory distress appreciated Abdomen/GI: Non distended Back: Normal ROM Skin: General appearance color normal MS/ Extremity: Moves all extremities, no obvious deformities appreciated, no edema noted to the lower extremities Neuro: Awake and alert Psych: Behavior is normal, Mood is normal, Patient is cooperative and pleasant Vital Signs: 08:46 BP 134 / 101; Pulse 87; Resp 16; Pulse Ox 100% on R/A; iw 09:56 BP 128 / 91; Pulse 88; Resp 19; Pulse Ox 100% on R/A; jd3 MDM: 08:48 Patient medically screened. [facility] 09:59 Data reviewed: vital signs, nurses notes. Counseling: I had a detailed discussion with [facility] the patient and/or guardian regarding: the historical points, exam findings, and any diagnostic results supporting the discharge/admit diagnosis, lab results, radiology results, the need for outpatient follow up, to return to the emergency department if symptoms worsen or persist or if there are any questions or concerns that arise at home. 04/07 08:49 Order name: Basic Metabolic Panel [facility] 04/07 08:49 Order name: CBC with Diff [facility] 04/07 08:49 Order name: LFT's [facility] 04/07 08:49 Order name: Troponin HS [facility] 04/07 08:49 Order name: Lipase [facility] 04/07 09:21 Order name: CBC with Automated Diff [facility] 04/07 08:49 Order name: XRAY Chest (1 view) [facility] 04/07 08:49 Order name: EKG; Complete Time: 08:50 [facility] 04/07 09:43 Order name: Basic Metabolic Panel [facility] 04/07 09:43 Order name: Liver (Hepatic) Function [facility] 04/07 09:43 Order name: Troponin High Sensitivity [facility] 04/07 09:43 Order name: Lipase [facility] 04/07 10:25 Order name: RAD [facility] 04/07 08:49 Order name: Cardiac monitoring; Complete Time: 09:31 [facility] 04/07 08:49 Order name: EKG - Nurse/Tech; Complete Time: 09:31 [facility] 04/07 08:49 Order name: IV Saline Lock; Complete Time: 09:17 [facility] 04/07 08:49 Order name: Labs collected and sent; Complete Time: 09:17 [facility] 04/07 08:49 Order name: O2 Per Protocol; Complete Time: 09:17 [facility] 04/07 08:49 Order name: O2 Sat Monitoring; Complete Time: 09:17 [facility] Administered Medications: 09:41 Drug: GI Cocktail without - (Maalox Suspension 30 ml, Lidocaine Liquid 2 % 15 jd3 ml) Route: PO; 10:34 Follow up: Response: No adverse reaction jd3 Disposition Summary: 04/07/22 10:00 Discharge Ordered Location: Home [facility] Condition: Stable [facility] Diagnosis - Epigastric pain [facility] Followup: [facility] - With: Kobe Traylor MD - When: 2 - 3 days - Reason: Recheck today's complaints, Continuance of care, Re-evaluation by your physician Discharge Instructions: - Discharge Summary Sheet jmm - Abdominal Pain, Adult jm Forms: - Medication Reconciliation Form jm - Thank You Letter jmm - Antibiotic Education jmm - Prescription Opioid Use jm - Work release form jd3 Prescriptions: - Carafate 1 gram Oral Tablet - take 1 tablet by ORAL route 4 times per day take on an empty stomach, beginning jmm on waking and last dose at bedtime; 100 tablet; Refills: 0, Product Selection Permitted - Pepcid 20 mg Oral Tablet - take 1 tablet by ORAL route every 12 hours for 10 days; 20 tablet; Refills: 0, [facility] Product Selection Permitted - dicyclomine 20 mg Oral Tablet - take 1 tablet by ORAL route 4 times per day; 20 tablet; Refills: 0, Product [facility] Selection Permitted Addendum: 04/10/2022 03:23 STAFF ATTESTATION STATEMENT: I was immediately available onsite in the emergency s d2 department for consultation in the care of this patient. I did not see or examine this patient. Lauren Nice MD. Signatures: Dispatcher [employer] EDMS Dani Puentes PA PA jmm Williams, Irene, RN RN iw Davies, Jonathon, RN RN jLauren James MD MD sd2
--- NOTE | 2022-04-07 10:01 | ER ---
Nurse's Notes [facility] Name: Kassy Callahan Age: 31 yrs Sex: Female : 1990 Arrival Date: 04/07/2022 Time: 08:19 Bed 5 Private MD: Diagnosis: Epigastric pain Presentation: 04/07 08:46 Chief complaint: Patient states: woke up at 2 amd with acid reflux, + nausea, pain iw across abd and epigastric area, and into left breast, also has some SOB. Coronavirus screen: At this time, the client does not indicate any symptoms associated with coronavirus-19. Ebola Screen: Patient negative for fever greater than or equal to 101.5 degrees Fahrenheit, and additional compatible Ebola Virus Disease symptoms Patient denies exposure to infectious person. Patient denies travel to an Ebola-affected area in the 21 days before illness onset. No symptoms or risks identified at this time. Initial Sepsis Screen: Does the patient meet any 2 criteria? No. Patient's initial sepsis screen is negative. Does the patient have a suspected source of infection? No. Patient's initial sepsis screen is negative. Risk Assessment: Do you want to hurt yourself or someone else? Patient reports no desire to harm self or others. Onset of symptoms was April 07, 2022. 08:46 Method Of Arrival: Ambulatory iw 08:46 Acuity: MARION 3 iw Historical: - Allergies: 08:47 SHELLFISH; iw - PMHx: 08:47 PCOS; Protruding Discs L4-L5; iw - Immunization history:: Adult Immunizations unknown. - Social history:: Smoking status: unknown. Screenin:53 Abuse screen: Denies threats or abuse. Nutritional screening: No deficits noted. jd3 Tuberculosis screening: No symptoms or risk factors identified. Fall Risk IV access (20 points). Ambulatory Aid- None/Bed Rest/Nurse Assist (0 pts). Gait- Normal/Bed Rest/Wheelchair (0 pts) Mental Status- Oriented to own ability (0 pts). Total Pan Fall Scale indicates No Risk (0-24 pts). Assessment: 09:00 General: Appears in no apparent distress. comfortable, Behavior is calm, cooperative, jd3 appropriate for age. Pain: Complains of pain in mid back area, right upper quadrant and right shoulder Quality of pain is described as sharp, shooting. Neuro: Fields Agitation-Sedation Scale (RASS): 0 - Alert and Calm Level of Consciousness is awake, alert, obeys commands, Oriented to person, place, time, situation. Cardiovascular: Capillary refill < 3 seconds Patient's skin is warm and dry. Rhythm is regular. Respiratory: Airway is patent Respiratory effort is even, unlabored, Respiratory pattern is regular, symmetrical, Denies cough, shortness of breath. GI: Abdomen is non-distended, Abd is soft and non tender X 4 quads. Reports upper abdominal pain, nausea. : No signs and/or symptoms were reported regarding the genitourinary system. EENT: No signs and/or symptoms were reported regarding the EENT system. Derm: Skin is intact, Skin is dry, Skin is normal, Skin temperature is warm. Musculoskeletal: Circulation, motion, and sensation intact. Range of motion: intact in all extremities. Vital Signs: 08:46 BP 134 / 101; Pulse 87; Resp 16; Pulse Ox 100% on R/A; iw 09:56 BP 128 / 91; Pulse 88; Resp 19; Pulse Ox 100% on R/A; jd3 ED Course: 08:19 Patient arrived in ED. as 08:21 Dani Puentes PA is PHCP. jmm 08:21 Lauren Nice MD is Attending Physician. jmm 08:47 Triage completed. iw 08:47 Arm band placed on. iw 09:04 Solomon Griggs, RN is Primary Nurse. jd3 09:17 Inserted saline lock: 20 gauge in left antecubital area, using aseptic technique. Blood jd3 collected. 09:54 Patient has correct armband on for positive identification. Placed in gown. Bed in low jd3 position. Call light in reach. Side rails up X 1. Client placed on continuous cardiac and pulse oximetry monitoring. NIBP monitoring applied. pvc monitor on. Pulse ox on. NIBP on. 10:00 Kobe Traylor MD is Referral Physician. jmm 10:34 No provider procedures requiring assistance completed. IV discontinued, intact, jd3 bleeding controlled, No redness/swelling at site. Pressure dressing applied. 10:44 RAD In Process Unspecified. EDMS Administered Medications: 09:41 Drug: GI Cocktail without - (Maalox Suspension 30 ml, Lidocaine Liquid 2 % 15 jd3 ml) Route: PO; 10:34 Follow up: Response: No adverse reaction jd3 Medication: 09:53 VIS not applicable for this client. jd3 Outcome: 10:00 Discharge ordered by . manish 10:34 Discharged to home ambulatory. jd3 10:34 Condition: stable 10:34 Discharge instructions given to patient, Instructed on discharge instructions, follow up and referral plans. medication usage, Demonstrated understanding of instructions, follow-up care, medications, Prescriptions given X 3. 10:35 Patient left the ED. jd3 Signatures: Dispatcher [employer] EDMS Dani Puentes PA PA jmm Martinez, Amelia as Williams, Irene, Solomon Mcgregor RN, RN RN jd3
--- NOTE | 2022-04-07 10:24 | RAD REPORT ---
EXAM DESCRIPTION: Michael Single View04/07/2022 10:15 am CLINICAL HISTORY: Chest pain COMPARISON: 2018 FINDINGS: The lungs appear clear of acute infiltrate. The heart is normal size IMPRESSION: No acute abnormalities displayed
[2022-04-07 10:39] VITALS: O2SAT 100
[2022-04-07 10:40] VITALS: BP 128/91
--- NOTE | 2022-04-08 14:06 | EKG ---
Test Date: 2022-04-07 Test Time: 09:29:58 Certified Nurses' Aide: LAUREN MEASUREMENT RESULTS: Intervals: Rate: 74 OH: 146 QRSD: 82 QT: 384 QTc: 426 [place]: P: 29 OH: 146 QRS: 52 T: 25 INTERPRETIVE STATEMENTS: Normal sinus rhythm with sinus arrhythmia Normal ECG Compared to ECG 03/09/2019 16:21:00 No significant changes Electronically Signed On 04-08-22 14:02:24 CDT by Gaetano Fuentes
== END 2022-04-07 10:35 | disposition home or self-care (01) ==
LOC: ER 08:15
DX: R10.13 Epigastric pain (principal); Z91.013 Allergy to seafood; E28.2 Polycystic ovarian syndrome; M51.26 Other intervertebral disc displacement, lumbar region
CPT/HCPCS: 36415; 71045; 80048; 80076; 83690; 84484; 85025; 93005; 99284

== ENCOUNTER 2022-04-11 07:55 | Day surgery (SDC) | payer OTHER ==
[2022-04-10 11:23] LABS: Specific Gravity 1.026 (1.005-1.030)
[2022-04-11] MEDS ORDERED: Ringers Lactate 1,000 ML IV ONE (08:21)
[2022-04-11] MEDS ORDERED: LIDOCAINE 1% MPF 2 ML AMPULE ONE (09:44)
[2022-04-11] MEDS ORDERED: propofoL 200 MG/20 ML VIAL IV ONE ×2 (09:44)
--- NOTE | 2022-04-11 10:13 | ENDO RPT ---
[address], [address] EGD PROCEDURE REPORT EXAM DATE: 04/11/2022 PATIENT NAME: Kassy Callahan MR#: [id number] BIRTHDATE: 1990 ATTENDING: Sonu Browning DR STATUS: outpatient RUBY ON RAILS ENGINEER: Lissette Radford RN and Ashley Black INDICATIONS: The patient is a 31 yr old Female here for an EGD due to mid epigastric abdominal pain PROCEDURE PERFORMED: EGD with biopsy for H. pylori and EGD with biopsy MEDICATIONS: Per Anesthesia. TOPICAL ANESTHETIC: none CONSENT: The patient understands the risks and benefits of the procedure and understands that these risks include, but are not limited to: sedation, allergic reaction, infection, perforation and/or bleeding. Alternative means of evaluation and treatment include, among others: physical exam, x-rays, and/or surgical intervention. The patient elects to proceed with this endoscopic procedure. DESCRIPTION OF PROCEDURE: During intra-op preparation period all mechanical medical equipment was checked for proper function. Hand hygiene and appropriate measures for infection prevention was taken. Procedure, possible complications, and alternatives including but not limited to the possibility of bleeding, perforation, tear, infection, sepsis, need for surgery, need for blood transfusion, and anesthesia related complications were explained to the patient. After the risks, benefits and alternatives of the procedure were thoroughly explained, Informed consent was verified, confirmed and timeout was successfully executed by the treatment team. The patient was placed in the left lateral position. The patient was anesthetized with topical anesthesia. Through the anesthetized oropharyngeal area, the scope was passed without any difficulty. The [id number] ([id number]) endoscope was introduced through the mouth and advanced to the second portion of the duodenum. Retroflexed views revealed no abnormalities. The gastroscope was then slowly withdrawn and removed. Bile reflux was found in the gastroesophageal junction. With standard forceps, a biopsy was obtained and sent to pathology. Mild gastritis was found in the body and the antrum of the stomach. Multiple biopsies were obtained and sent to pathology. A biopsy for H. pylori was taken. Duodenitis was found in the bulb and descending duodenum. Multiple biopsies were obtained and sent to pathology. With standard forceps, a biopsy was obtained and sent to pathology. ADVERSE EVENTS: There were no complications. IMPRESSIONS: 1. Bile reflux was found in the gastroesophageal junction 2. Mild gastritis was found in the body and the antrum of the stomach 3. Duodenitis was found in the bulb and descending duodenum RECOMMENDATIONS: 1. acid suppression therapy 2. anti-reflux regimen 3. await biopsy results 4. avoid NSAIDS 5. follow-up of helicobacter pylori status, treat if indicated REPEAT EXAM: Sonu Browning DR eSigned: Sonu Browning DR 04/11/2022 10:12 AM cc: CPT CODES: ICD9 CODES: PATIENT NAME: Kassy Callahan MR#: [id number]
[2022-04-11 11:11] VITALS: O2SAT 100
[2022-04-11 11:14] VITALS: BP 116/74; TEMP 97
== END 2022-04-11 10:40 | disposition home or self-care (01) ==
LOC: OR 07:55
PROVIDERS: ATTEND Surgery
PROC: 0DB78ZX Excision of Stomach, Pylorus, Via Natural or Artificial Opening Endoscopic, Diagnostic (ICD-10-PCS; 2022-04-11)
PROC: 0DB68ZX Excision of Stomach, Via Natural or Artificial Opening Endoscopic, Diagnostic (ICD-10-PCS; 2022-04-11)
PROC: 0DB48ZX Excision of Esophagogastric Junction, Via Natural or Artificial Opening Endoscopic, Diagnostic (ICD-10-PCS; 2022-04-11)
PROC: 0DB98ZX Excision of Duodenum, Via Natural or Artificial Opening Endoscopic, Diagnostic (ICD-10-PCS; principal; 2022-04-11 09:30)
DX: K21.00 Gastro-esophageal reflux disease with esophagitis, without bleeding (principal); R10.13 Epigastric pain; K21.9 Gastro-esophageal reflux disease without esophagitis; K29.50 Unspecified chronic gastritis without bleeding
CPT/HCPCS: 88312; 81025; 88305 ×2; 43239; J2704 ×2; J7120

== ENCOUNTER 2022-08-26 07:45 | Emergency (ER) | payer OTHER ==
[2022-08-26] MEDS ORDERED: FAMOTIDINE 20 MG TAB ONE (08:45)
[2022-08-26] MEDS ORDERED: predniSONE 20 MG TAB ONE (08:46)
[2022-08-26 09:07] VITALS: BP 142/96; TEMP 97.7; O2SAT 100
--- NOTE | 2022-09-12 14:11 | ER ---
Nurse's Notes [facility] Name: Kassy Callahan Age: 31 yrs Sex: Female : 1990 Arrival Date: 08/26/2022 Time: 07:50 Bed 12 Private MD: Diagnosis: Allergic reaction;Allergic urticaria Presentation: 08/26 07:50 Chief complaint:. ld1 07:55 Chief complaint: Patient states: Itchy since yesterday, began on my face and head. This ld1 morning I woke up with full body rash. Coronavirus screen: At this time, the client does not indicate any symptoms associated with coronavirus-19. Ebola Screen: No symptoms or risks identified at this time. Initial Sepsis Screen: Does the patient meet any 2 criteria? No. Patient's initial sepsis screen is negative. Does the patient have a suspected source of infection? No. Patient's initial sepsis screen is negative. Risk Assessment: Do you want to hurt yourself or someone else? Patient reports no desire to harm self or others. Onset of symptoms was August 26, 2022. 07:55 Method Of Arrival: Ambulatory ld1 07:55 Acuity: MARION 4 ld1 Triage Assessment: 07:56 General: Appears in no apparent distress. comfortable, Behavior is calm, cooperative, ld1 appropriate for age. Pain: Denies pain. EENT: No signs and/or symptoms were reported regarding the EENT system. Neuro: Level of Consciousness is awake, alert, obeys commands, Oriented to person, place, time, situation. Cardiovascular: Capillary refill < 3 seconds Patient's skin is warm and dry. Respiratory: Airway is patent Respiratory effort is even, unlabored. GI: Abdomen is flat, non-distended. : No signs and/or symptoms were reported regarding the genitourinary system. Derm: Rash noted that is itchy, red. Musculoskeletal: No signs and/or symptoms reported regarding the musculoskeletal system. 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 - Social history:: Smoking status: Patient denies any tobacco usage or history of. Patient/guardian denies using alcohol. Screenin:57 [facility] ED Fall Risk Assessment (Adult) History of falling in the last 3 months, ld1 including since admission No falls in past 3 months (0 pts). Abuse screen: Denies threats or abuse. Denies injuries from another. Nutritional screening: No deficits noted. Tuberculosis screening: No symptoms or risk factors identified. Assessment: 07:57 Reassessment: See triage assessment. ld1 Vital Signs: 07:55 BP 142 / 96; Pulse 88; Resp 18; Temp 97.7; Pulse Ox 100% on R/A; Weight 83.01 kg; ld1 Height 5 ft. 5 in. ; Pain 0/10; 07:55 Body Mass Index 30.45 (83.01 kg, 165.1 cm) ld1 07:55 Pain Scale: Adult ld1 ED Course: 07:50 Patient arrived in ED. rg4 07:56 Triage completed. ld1 07:56 Arm band placed on right wrist. ld1 07:57 Patient has correct armband on for positive identification. Placed in gown. Bed in low ld1 position. Call light in reach. Side rails up X2. Pulse ox on. NIBP on. Door closed. Noise minimized. Warm blanket given. 07:57 No provider procedures requiring assistance completed. ld1 07:58 Christian Berman DO is Attending Physician. ms3 08:18 Tyson Lake MD is Referral Physician. ms3 08:43 Briana Borjas, JOSE is Primary Nurse. ld1 08:44 Patient did not have IV access during this emergency room visit. ld1 Administered Medications: 08:43 Drug: predniSONE PO 60 mg Route: PO; ld1 08:43 Drug: Famotidine PO 20 mg Route: PO; ld1 Medication: 07:57 VIS not applicable for this client. ld1 Outcome: 08:19 Discharge ordered by . ms3 08:43 Discharged to home ambulatory. ld1 08:43 Condition: stable 08:43 Discharge instructions given to patient, Instructed on discharge instructions, follow up and referral plans. medication usage, Demonstrated understanding of instructions, follow-up care, medications, Prescriptions given X 2. 08:44 Patient left the ED. ld1 Signatures: Rosalva Kimbrough rg4 Christian Berman DO DO ms3 Briana Borjas, RN RN ld1
--- NOTE | 2022-09-12 14:11 | EDPHYS ---
Physician Documentation [facility] Name: Kassy Callahan Age: 31 yrs Sex: Female : 1990 Arrival Date: 08/26/2022 Time: 07:50 Bed 12 Private MD: ED Physician Christian Berman HPI: 08/26 08:20 This 31 yrs old Female presents to ER via Ambulatory with complaints of Rash. ms3 08:20 31-year-old female with past medical history of PCOS, protruding disc L4-L5 presents ms3 for generalized pruritic rash that began yesterday. Patient states she ate a 7 pepper with 7 spice chicken from [employer] on Thursday night. Patient states at that time she then develop scalp itching. Patient then had leftovers last night and the rash became worse this morning. Patient denies pain. Patient denies shortness of breath, nausea, vomiting.. 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 - Social history:: Smoking status: Patient denies any tobacco usage or history of. Patient/guardian denies using alcohol. ROS: 08:20 Constitutional: Negative for fever, and chills. Cardiovascular: Negative for chest ms3 pain, and palpitations. Respiratory: Negative for shortness of breath, cough, wheezing, and pleuritic chest pain, Abdomen/GI: Negative for abdominal pain, nausea, vomiting, diarrhea, and constipation, MS/Extremity: Negative for injury and deformity. 08:20 Skin: Positive for rash. 08:20 All other systems are negative. Exam: 08:20 Constitutional: This is a well developed, well nourished patient who is awake, alert, ms3 and in no acute distress. Head/Face: Normocephalic, atraumatic. Neck: Trachea midline, no cervical lymphadenopathy. Supple, full range of motion without nuchal rigidity, or vertebral point tenderness. No Meningismus. Chest/axilla: Normal chest wall appearance and motion. Nontender with no deformity. Cardiovascular: Regular rate and rhythm with a normal S1 and S2. No gallops, murmurs, or rubs. Normal PMI, no JVD. No pulse deficits. Respiratory: Lungs have equal breath sounds bilaterally, clear to auscultation and percussion. No rales, rhonchi or wheezes noted. No increased work of breathing, no retractions or nasal flaring. Abdomen/GI: Soft, non-tender, with normal bowel sounds. No distension or tympany. No guarding or rebound. No evidence of tenderness throughout. 08:20 Skin: urticaria. Vital Signs: 07:55 BP 142 / 96; Pulse 88; Resp 18; Temp 97.7; Pulse Ox 100% on R/A; Weight 83.01 kg; ld1 Height 5 ft. 5 in. ; Pain 0/10; 07:55 Body Mass Index 30.45 (83.01 kg, 165.1 cm) ld1 07:55 Pain Scale: Adult ld1 MDM: 08:18 Patient medically screened. ms3 08:20 Differential diagnosis: allergic reaction. Data reviewed: vital signs, nurses notes, ms3 and as a result, I will discharge patient. I considered the following discharge prescriptions or medication management in the emergency department Medications were administered in the Emergency Department. See AUG. 08:29 Counseling: I had a detailed discussion with the patient and/or guardian regarding: the ms3 historical points, exam findings, and any diagnostic results supporting the discharge/admit diagnosis, the need for outpatient follow up, to return to the emergency department if symptoms worsen or persist or if there are any questions or concerns that arise at home. ED course: Discussed physical exam findings with patient. Patient to follow-up with primary care physician in 2 to 3 days. Patient understands agrees with plan. All questions were answered. Return cautions discussed include worsening symptoms, or any other concerns.. Administered Medications: 08:43 Drug: predniSONE PO 60 mg Route: PO; ld1 08:43 Drug: Famotidine PO 20 mg Route: PO; ld1 Disposition: 16:23 Chart complete. ms3 Disposition Summary: 08/26/22 08:19 Discharge Ordered Location: Home ms3 Condition: Stable ms3 Diagnosis - Allergic reaction ms3 - Allergic urticaria ms3 Followup: ms3 - With: Tyson Lake MD - When: 2 - 3 days - Reason: Recheck today's complaints Discharge Instructions: - Discharge Summary Sheet ms3 - Allergies, Adult ms3 Forms: - Medication Reconciliation Form ms3 - Thank You Letter ms3 - Antibiotic Education ms3 - Prescription Opioid Use ms3 Prescriptions: - Prednisone 20 mg Oral Tablet - take 2 tablets by ORAL route once daily for 5 days; 10 tablet; Refills: 0, ms3 Product Selection Permitted - Pepcid 20 mg Oral Tablet - take 1 tablet by ORAL route once daily; 5 tablet; Refills: 0, Product Selection ms3 Permitted Signatures: Christian Berman DO DO ms3 Briana Borjas RN RN ld1
== END 2022-08-26 08:44 | disposition home or self-care (01) ==
LOC: ER 07:45
DX: L50.0 Allergic urticaria (principal); Z91.013 Allergy to seafood
CPT/HCPCS: 99283; J7512

== ENCOUNTER 2022-09-09 10:22 | Emergency (ER) | payer OTHER ==
[2022-09-09] MEDS ORDERED: levoFLOXacin 750 MG TAB ONE ×2 (10:55→10:57)
[2022-09-09] MEDS ORDERED: DOXYCYCLINE 100 MG CAP PO ONE ×2 (10:55→10:57)
[2022-09-09] MEDS ORDERED: SILVER SULFADIAZINE 1% 25 GM TOP ONE (10:59)
[2022-09-09 11:01] LABS: Specific Gravity 1.026 (1.005-1.030); Urine Bilirubin NEGATIVE (Negative); Urine Blood Trace (Negative); Urine Clarity Turbid (Clear); Urine Color Light-Yellow (Yellow); Urine Glucose NEGATIVE (Negative); Urine Protein NEGATIVE (Negative); Urine Urobilinogen Normal (Normal)
--- NOTE | 2022-09-09 11:29 | RAD REPORT ---
EXAM DESCRIPTION: US - Extremity Venous Uni Ltd - 09/09/2022 11:20 am CLINICAL HISTORY: Pain, swelling. Open wound left calf COMPARISON: None. TECHNIQUE: Real-time sonographic evaluation of the left lower extremity deep venous system was perfo rmed. FINDINGS: Normal compressibility, flow augmentation, phasic flow and spontaneous flow is identified in the left lower extremity deep venous system. No intraluminal filling defects seen. Subcutaneous soft tissue echogenicity anteriorly along the lower leg, suggestive of edema. IMPRESSION: No evidence of DVT in the left lower extremity. Edematous changes which may reflect cellulitis anteriorly along the lower leg.
--- NOTE | 2022-09-09 11:35 | EDPHYS ---
Physician Documentation [facility] Name: Kassy Callahan Age: 31 yrs Sex: Female : 1990 Arrival Date: 09/09/2022 Time: 10:25 Bed IW1 Private MD: ED Physician Rosalino Lentz HPI: 09/09 10:37 This 31 yrs old Female presents to ER via Unassigned with complaints of Leg pina Swelling. 10:37 The patient presents with decreased range of motion, pain, that is acute. The pina complaints affect the lateral aspect of left calf. Context: The problem was sustained bora aquilinoa. Onset: The symptoms/episode began/occurred 5 day(s) ago. Modifying factors: The symptoms are alleviated by elevating leg, remaining still, the symptoms are aggravated by movement, weight bearing. Associated signs and symptoms: The patient has no apparent associated signs or symptoms. Treatment prior to arrival includes: oint, keflex, doxy. Severity of symptoms: At their worst the symptoms were mild, moderate, in the emergency department the symptoms are unchanged. The patient has not experienced similar symptoms in the past. COLLEGE DIRECTOR: 10:40 LMP N/A - control method vg1 Historical: - Allergies: 10:40 SHELLFISH; vg1 - Home Meds: 10:40 control [Active]; vg1 - PMHx: 10:40 PCOS; Protruding Discs L4-L5; vg1 - PSHx: 10:40 Appendectomy; Cholecystectomy; Tonsillectomy; vg1 - Immunization history:: Client reports receiving the 2nd dose of the Covid vaccine. - Social history:: Smoking status: Patient denies any tobacco usage or history of. - Family history:: not pertinent. ROS: 10:37 Constitutional: Negative for fever, chills, and weight loss, Eyes: Negative for injury, pina pain, redness, and discharge, ENT: Negative for injury, pain, and discharge, Neck: Negative for injury, pain, and swelling, Cardiovascular: Negative for chest pain, palpitations, and edema, Respiratory: Negative for shortness of breath, cough, wheezing, and pleuritic chest pain, Abdomen/GI: Negative for abdominal pain, nausea, vomiting, diarrhea, and constipation, Back: Negative for injury and pain, : Negative for injury, bleeding, discharge, and swelling, Neuro: Negative for headache, weakness, numbness, tingling, and seizure, Psych: Negative for depression, anxiety, suicide ideation, homicidal ideation, and hallucinations, Allergy/Immunology: Negative for hives, rash, and allergies, Endocrine: Negative for neck swelling, polydipsia, polyuria, polyphagia, and marked weight changes, Hematologic/Lymphatic: Negative for swollen nodes, abnormal bleeding, and unusual bruising. 10:37 MS/extremity: Positive for pain, swelling, tenderness. 10:37 Skin: Positive for swelling, of the lateral aspect of left calf. Exam: 10:37 Constitutional: This is a well developed, well nourished patient who is awake, alert, pina and in no acute distress. Head/Face: Normocephalic, atraumatic. Eyes: Pupils equal round and reactive to light, extra-ocular motions intact. Lids and lashes normal. Conjunctiva and sclera are non-icteric and not injected. Cornea within normal limits. Periorbital areas with no swelling, redness, or edema. ENT: Nares patent. No nasal discharge, no septal abnormalities noted. Tympanic membranes are normal and external auditory canals are clear. Oropharynx with no redness, swelling, or masses, exudates, or evidence of obstruction, uvula midline. Mucous membranes moist. Neck: Trachea midline, no thyromegaly or masses palpated, and no cervical lymphadenopathy. Supple, full range of motion without nuchal rigidity, or vertebral point tenderness. No Meningismus. Chest/axilla: Normal chest wall appearance and motion. Nontender with no deformity. No lesions are appreciated. Cardiovascular: Regular rate and rhythm with a normal S1 and S2. No gallops, murmurs, or rubs. Normal PMI, no JVD. No pulse deficits. Respiratory: Lungs have equal breath sounds bilaterally, clear to auscultation and percussion. No rales, rhonchi or wheezes noted. No increased work of breathing, no retractions or nasal flaring. Abdomen/GI: Soft, non-tender, with normal bowel sounds. No distension or tympany. No guarding or rebound. No evidence of tenderness throughout. Back: No spinal tenderness. No costovertebral tenderness. Full range of motion. Neuro: Awake and alert, GCS 15, oriented to person, place, time, and situation. Cranial nerves II-XII grossly intact. Motor strength 5/5 in all extremities. Sensory grossly intact. Cerebellar exam normal. Normal gait. 10:37 Skin: cellulitis, that is mild, induration, that is mild is noted, injury, abrasion(s), small abrasion noted, moderate sized abrasion noted. Vital Signs: 10:34 BP 132 / 92; Pulse 86; Resp 16; Temp 98(O); Pulse Ox 100% on R/A; Weight 81.65 kg; vg1 Height 5 ft. 5 in. ; Pain 2/10; 10:34 Body Mass Index 29.95 (81.65 kg, 165.1 cm) vg1 10:34 Pain Scale: Adult vg1 MDM: 10:30 Patient medically screened. [facility] 09/09 10:41 Order name: Urine Analysis (UA); Complete Time: 11:24 [facility] 09/09 10:41 Order name: Test, Urine; Complete Time: 11:24 [facility] 09/09 10:37 Order name: US Extremity Venous Unilateral Ltd; Complete Time: 11:33 [facility] Administered Medications: 11:45 Drug: Doxycycline PO 100 mg Route: PO; vg1 11:45 Drug: LevOfloxacin PO 750 mg Route: PO; vg1 11:45 Drug: Silver SulfADIAZINE Topical Cream 1 % 1 application Route: Topical; Site: wound; vg1 Disposition Summary: 09/09/22 11:34 Discharge Ordered Location: Home [facility] Problem: [facility] Symptoms: have improved pina Condition: Stable pina Diagnosis - Abrasion, left lower leg - infected, salt h20 pina - UTI/ Urinary tract infection, site not specified [facility] Followup: pina - With: Private Physician - When: 2 - 3 days - Reason: Recheck today's complaints, Continuance of care, Re-evaluation by your physician Followup: pina - With: - When: 2 - 3 days - Reason: Recheck today's complaints, Continuance of care, Re-evaluation by your physician Discharge Instructions: - Discharge Summary Sheet pina - Cellulitis, Adult pina - Urinary Tract Infection, Adult pina - Cellulitis, Adult, [id number] - Wound Care, Adult [facility] Forms: - Medication Reconciliation Form [facility] - Thank You Letter [facility] - Antibiotic Education [facility] - Prescription Opioid Use [facility] Prescriptions: - Doxycycline Hyclate 100 mg Oral Tablet - take 1 tablet by ORAL route every 12 hours; 14 tablet; Refills: 0, Product pina Selection Permitted - Silvadene 1 % Topical Cream - Apply to affected area 1 application by TOPICAL route every 12 hours; 50 gram; pina Refills: 0, Product Selection Permitted - levofloxacin 750 mg Oral Tablet - take 1 tablet by ORAL route once daily; 9 tablet; Refills: 0, Product Selection pina Permitted Signatures: Dispatcher [employer] Rosalino Baer MD MD cha Garcia, Victoria RN RN vg1
--- NOTE | 2022-09-09 11:35 | ER ---
[facility]'s [facility] Name: Kassy Callahan Age: 31 yrs Sex: Female : 1990 Arrival Date: 09/09/2022 Time: 10:25 Bed IW1 Private MD: Diagnosis: Abrasion, left lower leg-infected, salt h20;UTI/ Urinary tract infection, site not specified Presentation: 09/09 10:34 Chief complaint: Patient states: on Thursday09/03/22 scrapped outer Left leg on a vg1 [place] at . Site appears to be red; pt states was sent to ED by [facility] to be evaluated. Chief complaint: Dr Lentz in triage assessing pt. Coronavirus screen: Vaccine status: Patient reports receiving the 2nd dose of the covid vaccine. Client indicates they have traveled out of the [place] in the last 14 days. Client traveled to: [facility] At this time, the client does not indicate any symptoms associated with coronavirus-19. Ebola Screen: Patient negative for fever greater than or equal to 101.5 degrees Fahrenheit, and additional compatible Ebola Virus Disease symptoms Patient denies exposure to infectious person. Patient reports travel to Ebola-affected area in the 21 days before illness onset. Patient reports having traveled to: [facility]. Initial Sepsis Screen: Does the patient meet any 2 criteria? No. Patient's initial sepsis screen is negative. Does the patient have a suspected source of infection? No. Patient's initial sepsis screen is negative. Risk Assessment: Do you want to hurt yourself or someone else? Patient reports no desire to harm self or others. Onset of symptoms was September 03, 2022. 10:34 Method Of Arrival: Ambulatory vg1 10:34 Acuity: MARION 4 vg1 Triage Assessment: 10:40 General: Appears in no apparent distress. comfortable, Behavior is calm, cooperative. vg1 Pain: Complains of pain in lateral aspect of left calf Pain currently is 2 out of 10 on a pain scale. Derm: Skin is red, left leg. Musculoskeletal: Circulation, motion, and sensation intact. SKY DIVER: 10:40 LMP N/A - control method vg1 Historical: - Allergies: 10:40 SHELLFISH; vg1 - Home Meds: 10:40 control [Active]; vg1 - PMHx: 10:40 PCOS; Protruding Discs L4-L5; vg1 - PSHx: 10:40 Appendectomy; Cholecystectomy; Tonsillectomy; vg1 - Immunization history:: Client reports receiving the 2nd dose of the Covid vaccine. - Social history:: Smoking status: Patient denies any tobacco usage or history of. - Family history:: not pertinent. Screenin:48 [facility] ED Fall Risk Assessment (Adult) History of falling in the last 3 months, vg1 including since admission No falls in past 3 months (0 pts) Confusion or Disorientation No (0 pts) Intoxicated or Sedated No (0 pts) Impaired Gait No (0 pts) Mobility Assist Device Used No (0 pt) Altered Elimination No (0 pt) Score/Fall Risk Level 0 - 2 = Low Risk Oriented to surroundings, Maintained a safe environment, Educated pt \T\ family on fall prevention, incl call for assistance when getting out of bed, Assessed \T\ reinforced patient's understanding of fall precautions. Abuse screen: Denies threats or abuse. Denies injuries from another. Nutritional screening: No deficits noted. Tuberculosis screening: No symptoms or risk factors identified. Assessment: 11:48 Reassessment: Patient appears in no apparent distress at this time. No changes from vg1 previously documented assessment. Patient and/or family updated on plan of care and expected duration. Pain level reassessed. Patient is alert, oriented x 3, equal unlabored respirations, skin warm/dry/pink. Vital Signs: 10:34 BP 132 / 92; Pulse 86; Resp 16; Temp 98(O); Pulse Ox 100% on R/A; Weight 81.65 kg; vg1 Height 5 ft. 5 in. ; Pain 2/10; 10:34 Body Mass Index 29.95 (81.65 kg, 165.1 cm) vg1 10:34 Pain Scale: Adult vg1 ED Course: 10:25 Patient arrived in ED. rg4 10:30 Rosalino Lentz MD is Attending Physician. pina 10:40 Triage completed. vg1 10:40 Arm band placed on. vg1 10:54 Test, Urine Sent. vg1 10:54 Urine Analysis (UA) Sent. vg1 11:22 US Extremity Venous Unilateral Ltd In Process Unspecified. EDMS 11:34 Orlando Dias MD is Referral Physician. pina 11:48 Patient has correct armband on for positive identification. vg1 11:48 No provider procedures requiring assistance completed. Patient did not have IV access vg1 during this emergency room visit. Administered Medications: 11:45 Drug: Doxycycline PO 100 mg Route: PO; vg1 11:45 Drug: LevOfloxacin PO 750 mg Route: PO; vg1 11:45 Drug: Silver SulfADIAZINE Topical Cream 1 % 1 application Route: Topical; Site: wound; vg1 Medication: 11:48 VIS not applicable for this client. vg1 Outcome: 11:34 Discharge ordered by MD. heller 11:48 Discharged to home ambulatory. vg1 11:48 Condition: good 11:48 Discharge instructions given to patient, Instructed on discharge instructions, follow up and referral plans. medication usage, Demonstrated understanding of instructions, follow-up care, medications, Prescriptions given X 3. 11:49 Patient left the ED. vg1 Signatures: Dispatcher [employer] EDRosalino Contreras MD MD cha Garcia, Rubi 4 Lucia Kimbrough, RN RN vg1
[2022-09-09 15:02] VITALS: BP 132/92; TEMP 98; O2SAT 100
== END 2022-09-09 11:49 | disposition home or self-care (01) ==
LOC: ER 10:22
DX: L03.116 Cellulitis of left lower limb (principal); N39.0 Urinary tract infection, site not specified; Z91.013 Allergy to seafood
CPT/HCPCS: 81003; 81025; 93971; 99284

== ENCOUNTER 2022-12-02 06:14 | Emergency (ER) | payer OTHER ==
--- NOTE | 2022-12-02 06:32 | EDPHYS ---
Physician Documentation [facility] Name: Kassy Noe Age: 31 yrs Sex: Female : 1990 Arrival Date: 12/02/2022 Time: 06:14 Bed 14 Private MD: ED Physician Dick Brewster HPI: 12/02 06:32 This 31 yrs old Female presents to ER via Unassigned with complaints of Rash. rt 06:32 Patient presents to the ED with 2 days of a rash. It started in the abdominal region, rt spread to involve the breast, has a small amount of rash on her bilateral wrists. She does report a burning sensation as well as itching. Of note, patient just completed a course of Bactrim for UTI. Patient denies other acute complaints at this time. Symptoms are mild in severity, no other aggravating or alleviating factors.. 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 - Social history:: Smoking status: Patient denies any tobacco usage or history of. - Family history:: not pertinent. ROS: 06:32 Constitutional: Negative for fever, chills, and weight loss, ENT: Negative for injury, rt pain, and discharge, Cardiovascular: Negative for chest pain, palpitations, and edema, Respiratory: Negative for shortness of breath, cough, wheezing, and pleuritic chest pain, Abdomen/GI: Negative for abdominal pain, nausea, vomiting, diarrhea, and constipation, Neuro: Negative for headache, weakness, numbness, tingling, and seizure, Psych: Negative for depression, anxiety, suicide ideation, homicidal ideation, and hallucinations. 06:32 Skin: Positive for rash, urticaria. Exam: 06:32 Constitutional: This is a well developed, well nourished patient who is awake, alert, rt and in no acute distress. Chest/axilla: Normal chest wall appearance and motion. Nontender with no deformity. No lesions are appreciated. Cardiovascular: Regular rate and rhythm with a normal S1 and S2. No gallops, murmurs, or rubs. Normal PMI, no JVD. No pulse deficits. Respiratory: Lungs have equal breath sounds bilaterally, clear to auscultation and percussion. No rales, rhonchi or wheezes noted. No increased work of breathing, no retractions or nasal flaring. Abdomen/GI: Soft, non-tender, with normal bowel sounds. No distension or tympany. No guarding or rebound. No evidence of tenderness throughout. Neuro: Awake and alert, GCS 15, oriented to person, place, time, and situation. Cranial nerves II-XII grossly intact. Motor strength 5/5 in all extremities. Sensory grossly intact. Cerebellar exam normal. Normal gait. Psych: Awake, alert, with orientation to person, place and time. Behavior, mood, and affect are within normal limits. 06:32 ENT: Mucosa appears to be normal, no blistering, tongue swelling. 06:32 Skin: Urticarial rash noted on trunk, arms, no evidence of cellulitis.. Vital Signs: 06:31 Pulse 90; Resp 16; Temp 98.2(O); Pulse Ox 99% on R/A; Weight 85.73 kg (R); Height 5 ft. ll3 5 in. (R); 06:31 Body Mass Index 31.45 (85.73 kg, 165.1 cm) ll3 MDM: 06:22 Patient medically screened. rt 06:32 Differential diagnosis: Urticaria, cellulitis, drug reaction, SJS, TENS, erythema rt multiforme. Data reviewed: vital signs, nurses notes. Test considered but Not performed: Labs: Stable vital signs, no mucosal involvement, labs not indicated.. Counseling: I had a detailed discussion with the patient and/or guardian regarding: the historical points, exam findings, and any diagnostic results supporting the discharge/admit diagnosis, the need for outpatient follow up, to return to the emergency department if symptoms worsen or persist or if there are any questions or concerns that arise at home. ED course: Patient has an EpiPen at home, states that she does not require one currently. Rash does not have appearance of a cellulitis, necrotizing fasciitis.. Administered Medications: 06:45 Drug: predniSONE PO 40 mg Route: PO; ll3 06:46 Follow up: Response: Medication administered at discharge. ll3 06:45 Drug: hydrOXYzine PO 50 mg Route: PO; ll3 06:46 Follow up: Response: Medication administered at discharge. ll3 06:45 Drug: Famotidine PO 20 mg Route: PO; ll3 06:45 Follow up: Response: Medication administered at discharge. ll3 Disposition Summary: 12/02/22 06:31 Discharge Ordered Location: Home rt Problem: new rt Symptoms: are unchanged rt Condition: Stable rt Diagnosis - Urticaria, unspecified rt Followup: rt - With: Private Physician - When: 2 - 3 days - Reason: Followup: rt - With: Emergency Department - When: - Reason: Worsening of condition Discharge Instructions: - Discharge Summary Sheet rt - Hives rt - Rash, Adult rt Forms: - Medication Reconciliation Form rt - Thank You Letter rt - Antibiotic Education rt - Prescription Opioid Use rt Prescriptions: - Hydroxyzine HCl 25 mg Oral Tablet - take 1 tablet by ORAL route every 6 hours As needed; 18 tablet; Refills: 0, rt Product Selection Permitted - Prednisone 20 mg Oral Tablet - take 2 tablets by ORAL route once daily; 8 tablet; Refills: 0, Product rt Selection Permitted Signatures: Amina Marquis RN RN 3 Dick Brewster MD MD rt
[2022-12-02] MEDS ORDERED: predniSONE 20 MG TAB ONE (06:46)
[2022-12-02] MEDS ORDERED: hydrOXYzine HCL 25 MG TAB ONE (06:46)
[2022-12-02] MEDS ORDERED: FAMOTIDINE 20 MG TAB ONE (06:47)
--- NOTE | 2022-12-02 06:47 | ER ---
Nurse's Notes [facility] Name: Kassy Noe Age: 31 yrs Sex: Female : 1990 Arrival Date: 12/02/2022 Time: 06:14 Bed 14 Private MD: Diagnosis: Urticaria, unspecified Presentation: 12/02 06:31 Chief complaint: Patient states: C/o rash to abdomen and arms since yesterday, denies ll3 difficulty breathing, swallowing, or any lesions on mouth/tongue. Coronavirus screen: Vaccine status: Patient reports receiving the 2nd dose of the covid vaccine. At this time, the client does not indicate any symptoms associated with coronavirus-19. Ebola Screen: No symptoms or risks identified at this time. Initial Sepsis Screen: Does the patient meet any 2 criteria? No. Patient's initial sepsis screen is negative. Does the patient have a suspected source of infection? No. Patient's initial sepsis screen is negative. Risk Assessment: Do you want to hurt yourself or someone else? Patient reports no desire to harm self or others. Onset of symptoms was December 01, 2022. 06:31 Method Of Arrival: Ambulatory ll3 06:31 Acuity: MARION 4 ll3 Triage Assessment: 06:34 General: Appears uncomfortable, Behavior is calm, cooperative. Pain: Denies pain. ll3 Respiratory: Airway is patent Respiratory effort is even, unlabored, Respiratory pattern is regular, symmetrical. Derm: Rash noted that is itchy, red, raised, on abdomen, right arm and left arm. 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 - Social history:: Smoking status: Patient denies any tobacco usage or history of. - Family history:: not pertinent. Screenin:36 [facility] ED Fall Risk Assessment (Adult) History of falling in the last 3 months, ll3 including since admission No falls in past 3 months (0 pts) Confusion or Disorientation No (0 pts) Intoxicated or Sedated No (0 pts) Impaired Gait No (0 pts) Mobility Assist Device Used No (0 pt) Altered Elimination No (0 pt) Score/Fall Risk Level 0 - 2 = Low Risk Oriented to surroundings, Maintained a safe environment, Educated pt \T\ family on fall prevention, incl call for assistance when getting out of bed. Abuse screen: Denies threats or abuse. Denies injuries from another. Nutritional screening: No deficits noted. Tuberculosis screening: No symptoms or risk factors identified. Assessment: 06:34 General: See triage assessment. ll3 Vital Signs: 06:31 Pulse 90; Resp 16; Temp 98.2(O); Pulse Ox 99% on R/A; Weight 85.73 kg (R); Height 5 ft. ll3 5 in. (R); 06:31 Body Mass Index 31.45 (85.73 kg, 165.1 cm) ll3 ED Course: 06:16 Patient arrived in ED. ja2 06:20 Dick Brewster MD is Attending Physician. rt 06:34 Triage completed. ll3 06:34 Arm band placed on Patient placed in an exam room, on a stretcher, on pulse oximetry. ll3 06:36 Patient has correct armband on for positive identification. Bed in low position. Call ll3 light in reach. Side rails up X 1. Adult w/ patient. 06:36 No provider procedures requiring assistance completed. ll3 06:45 Patient did not have IV access during this emergency room visit. ll3 Administered Medications: 06:45 Drug: predniSONE PO 40 mg Route: PO; ll3 06:46 Follow up: Response: Medication administered at discharge. ll3 06:45 Drug: hydrOXYzine PO 50 mg Route: PO; ll3 06:46 Follow up: Response: Medication administered at discharge. ll3 06:45 Drug: Famotidine PO 20 mg Route: PO; ll3 06:45 Follow up: Response: Medication administered at discharge. ll3 Medication: 06:36 VIS not applicable for this client. ll3 Outcome: 06:31 Discharge ordered by . rt 06:45 Discharged to home ambulatory, with significant other. ll3 06:45 Condition: stable 06:45 Discharge instructions given to patient, significant other, Instructed on discharge instructions, follow up and referral plans. medication usage, Demonstrated understanding of instructions, follow-up care, medications, Prescriptions given X 2. 06:46 Patient left the ED. ll3 Signatures: Jacqueline Logan Lynsea, RN RN ll3 Dick Brewster MD MD rt
[2022-12-02 06:57] VITALS: TEMP 98.2; O2SAT 99
== END 2022-12-02 06:46 | disposition home or self-care (01) ==
LOC: ER 06:14
DX: L50.9 Urticaria, unspecified (principal); Z91.013 Allergy to seafood
CPT/HCPCS: 99283; J7512

== ENCOUNTER 2022-12-02 22:04 | Emergency (ER) | payer OTHER ==
[2022-12-02] MEDS ORDERED: METHYLPREDNISOLONE 125 MG INJ ONE (22:43)
[2022-12-02] MEDS ORDERED: FAMOTIDINE 20 MG/2 ML VIAL IV ONE (22:44)
[2022-12-02] MEDS ORDERED: DIPHENHYDRAMINE 50 MG/ML VIAL ONE (22:44)
[2022-12-02] MEDS ORDERED: NA CHLORIDE 0.9% 1,000 ML ONE (22:44)
--- NOTE | 2022-12-03 | EDPHYS ---
Physician Documentation [facility] Name: Kassy Noe Age: 31 yrs Sex: Female : 1990 Arrival Date: 12/02/2022 Time: 22:04 Bed 19 Private MD: ED Physician Dick Brewster HPI: 12/02 23:16 This 31 yrs old Female presents to ER via Ambulatory with complaints of Rash, Hives. kb 23:16 The patient's rash thought to be caused by possibly due to bactrim. The rash is located kb on the body diffusely. The rash can be described as macular, papular. Onset: The symptoms/episode began/occurred yesterday. Associated signs and symptoms: Pertinent positives: itching. Severity of symptoms: At their worst the symptoms were moderate in the emergency department the symptoms are unchanged. The patient has not experienced similar symptoms in the past. The patient has not recently seen a physician. Pt reports she completed a 7 day course of Bactrim yesterday and developed a rash. Reports she was seen here this morning and given medications, but the rash returned this evening. . 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 - Social history:: Smoking status: Patient denies any tobacco usage or history of. ROS: 23:16 Constitutional: Negative for fever, chills, and weight loss. kb 23:16 Skin: Positive for rash, diffusely. 23:16 All other systems are negative. Exam: 23:16 Constitutional: This is a well developed, well nourished patient who is awake, alert, kb and in no acute distress. Head/Face: Normocephalic, atraumatic. ENT: Moist Mucous membranes Cardiovascular: Regular rate and rhythm with a normal S1 and S2. No gallops, murmurs, or rubs. No pulse deficits. Respiratory: Respirations even and unlabored. No increased work of breathing. Talking in full sentences Abdomen/GI: Soft, non-tender. No distention MS/ Extremity: Pulses equal, no cyanosis. Neurovascular intact. Full, normal range of motion. Neuro: Awake and alert, GCS 15, oriented to person, place, time, and situation. Moves all extremities. Normal gait. 23:16 Skin: rash a moderate rash is noted, rash can be described as macular, papular, and is diffusely located. Vital Signs: 22:31 BP 140 / 98; Pulse 99; Resp 17; Temp 98.4; Pulse Ox 100% ; Weight 85.73 kg; Height 5 vc1 ft. 5 in. ; Pain 6/10; 23:29 BP 138 / 81; Pulse 95; Resp 18; Pulse Ox 99% on R/A; pf1 12/03 00:16 BP 131 / 85; Pulse 98; Resp 15 S; Pulse Ox 99% on R/A; ha1 12/02 22:31 Body Mass Index 31.45 (85.73 kg, 165.1 cm) vc1 12/02 22:31 Pain Scale: Adult vc1 MDM: 12/02 22:24 Patient medically screened. kb 23:16 Differential diagnosis: impetigo, varicella, allergic reaction. Data reviewed: vital kb signs, nurses notes. 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 23:58 Response to treatment: the patient's symptoms have mildly improved after treatment. kb 12/02 22:24 Order name: IV Start; Complete Time: 22:48 kb Administered Medications: 22:40 Drug: MethylPrednisoLONE IVP 125 mg Route: IVP; Site: right antecubital; pf1 23:30 Follow up: Response: No adverse reaction; No change in condition pf1 22:40 Drug: Famotidine IVP 20 mg Route: IVP; Site: right antecubital; pf1 23:30 Follow up: Response: No adverse reaction; Marked relief of symptoms pf1 22:40 Drug: diphenhydrAMINE IVP 12.5 mg Route: IVP; Site: right antecubital; pf1 23:30 Follow up: Response: No adverse reaction; No change in condition pf1 22:40 Drug: NS 0.9% IV 1000 ml Route: IV; Rate: 1000 ml; Site: right antecubital; pf1 23:30 Follow up: Response: No adverse reaction; Marked relief of symptoms pf1 23:30 Follow up: Response: No adverse reaction; Marked relief of symptoms; IV Status: pf1 Completed infusion; IV Intake: 1000ml Disposition: 12/03 00:55 Co-signature as Attending Physician, Dick Brewster MD I reviewed the patient's care rt provided by the Advanced Practice Provider and agree with the diagnosis and treatment plan. Disposition Summary: 12/02/22 23:59 Discharge Ordered Location: Home kb Condition: Stable kb Diagnosis - Rash and other nonspecific skin eruption kb Followup: kb - With: Emergency Department - When: As needed - Reason: Worsening of condition Followup: kb - With: Private Physician - When: 2 - 3 days - Reason: Recheck today's complaints, Continuance of care, Re-evaluation by your physician Discharge Instructions: - Discharge Summary Sheet kb - Rash, Adult, [id number] kb Forms: - Medication Reconciliation Form kb - Thank You Letter kb - Antibiotic Education kb - Prescription Opioid Use kb Prescriptions: - Pepcid 20 mg Oral Tablet - take 1 tablet by ORAL route every 12 hours for 5 days; 10 tablet; Refills: 0, kb Product Selection Permitted Signatures: Ximena Michael FNP-C FNP-Ckb Calcote, Vanessa, RN RN vc1 Dick Brewster MD MD rt Ronda Art RN RN pf1
--- NOTE | 2022-12-03 | ER ---
Nurse's Notes [facility] Name: Kassy Noe Age: 31 yrs Sex: Female : 1990 Arrival Date: 12/02/2022 Time: 22:04 Bed 19 Private MD: Diagnosis: Rash and other nonspecific skin eruption Presentation: 12/02 22:31 Chief complaint: Patient states: "I was here this morning for an allergic reaction to vc1 what I think is Bactrim. They gave me some medication and it went away but now it is back.". Coronavirus screen: Vaccine status: Patient reports receiving the 2nd dose of the covid vaccine. Plus Booster; Epiclist. Coronavirus screen: Client denies travel out of the [place] in the last 14 days. At this time, the client does not indicate any symptoms associated with coronavirus-19. Ebola Screen: Patient negative for fever greater than or equal to 101.5 degrees Fahrenheit, and additional compatible Ebola Virus Disease symptoms Patient denies exposure to infectious person. Patient denies travel to an Ebola-affected area in the 21 days before illness onset. No symptoms or risks identified at this time. Onset: The symptoms/episode began/occurred today. Anaphylaxis evaluation, the patient reports or I have noted the following symptoms which indicate a significant risk of anaphylaxis: no signs or symptoms of anaphylaxis were noted. Initial Sepsis Screen: Does the patient meet any 2 criteria? HR > 90 bpm. No. Patient's initial sepsis screen is negative. Does the patient have a suspected source of infection? No. Patient's initial sepsis screen is negative. Risk Assessment: Do you want to hurt yourself or someone else? Patient reports no desire to harm self or others. Onset of symptoms was December 02, 2022. 22:31 Method Of Arrival: Ambulatory vc1 22:31 Acuity: MARION 4 vc1 Triage Assessment: 22:33 General: Appears in no apparent distress. uncomfortable, Behavior is cooperative, vc1 appropriate for age. Pain: Complains of pain in Arms, abdomen, chest and back Pain does not radiate. Pain currently is 6 out of 10 on a pain scale. at worst was 8 out of 10 on a pain scale. Quality of pain is described as burning, Alleviated by medications. EENT: No deficits noted. No signs and/or symptoms were reported regarding the EENT system. Neuro: Level of Consciousness is awake, alert, obeys commands, Oriented to person, place, time, situation, Appropriate for age. Cardiovascular: No deficits noted. Respiratory: Airway is patent Respiratory effort is even, unlabored, Respiratory pattern is regular, symmetrical. GI: No deficits noted. No signs and/or symptoms were reported involving the gastrointestinal system. : No deficits noted. No signs and/or symptoms were reported regarding the genitourinary system. Derm: Rash noted that is itchy, red, on back, chest, abdomen, right arm and left arm Reports burning, itching, pain that is 6 out of 10 on a pain scale. Musculoskeletal: No deficits noted. No signs and/or symptoms reported regarding the musculoskeletal system. 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 - Social history:: Smoking status: Patient denies any tobacco usage or history of. Screenin:36 [facility] ED Fall Risk Assessment (Adult) History of falling in the last 3 months, vc1 including since admission No falls in past 3 months (0 pts) Confusion or Disorientation No (0 pts) Intoxicated or Sedated No (0 pts) Impaired Gait No (0 pts) Mobility Assist Device Used No (0 pt) Altered Elimination No (0 pt) Score/Fall Risk Level 0 - 2 = Low Risk Oriented to surroundings, Maintained a safe environment, Educated pt \\T\\ family on fall prevention, incl call for assistance when getting out of bed. Abuse screen: Denies threats or abuse. Nutritional screening: No deficits noted. Tuberculosis screening: No symptoms or risk factors identified. Assessment: 22:35 General: Appears in no apparent distress. comfortable, well groomed, well developed, pf1 Behavior is calm, cooperative, appropriate for age, quiet. 22:35 Pain: Denies pain. Neuro: No deficits noted. Level of Consciousness is awake, alert, pf1 obeys commands, Oriented to person, place, time, situation. Cardiovascular: No deficits noted. Capillary refill < 3 seconds Patient's skin is warm and dry. Respiratory: No deficits noted. Airway is patent Trachea midline Respiratory effort is even, unlabored, Respiratory pattern is regular, symmetrical, Breath sounds are clear bilaterally. GI: No deficits noted. No signs and/or symptoms were reported involving the gastrointestinal system. : No deficits noted. No signs and/or symptoms were reported regarding the genitourinary system. EENT: No deficits noted. No signs and/or symptoms were reported regarding the EENT system. Derm: Rash noted that is itchy, red, raised. Musculoskeletal: No deficits noted. No signs and/or symptoms reported regarding the musculoskeletal system. Circulation, motion, and sensation intact. Capillary refill < 3 seconds, Range of motion: intact in all extremities. 23:27 Reassessment: Patient appears in no apparent distress at this time. Patient and/or pf1 family updated on plan of care and expected duration. Pain level reassessed. Patient is alert, oriented x 3, equal unlabored respirations, skin warm/dry/pink. Patient states symptoms have not improved. 12/03 00:16 Reassessment: Patient and/or family updated on plan of care and expected duration. Pain ha1 level reassessed. Patient is alert, oriented x 3, equal unlabored respirations, skin warm/dry/pink. Vital Signs: 12/02 22:31 BP 140 / 98; Pulse 99; Resp 17; Temp 98.4; Pulse Ox 100% ; Weight 85.73 kg; Height 5 vc1 ft. 5 in. ; Pain 6/10; 23:29 BP 138 / 81; Pulse 95; Resp 18; Pulse Ox 99% on R/A; pf1 12/03 00:16 BP 131 / 85; Pulse 98; Resp 15 S; Pulse Ox 99% on R/A; ha1 12/02 22:31 Body Mass Index 31.45 (85.73 kg, 165.1 cm) vc1 12/02 22:31 Pain Scale: Adult vc1 ED Course: 12/02 22:05 Patient arrived in ED. ja2 22:09 Ximena Michael FNP-C is PHCP. kb 22:09 Dick Brewster MD is Attending Physician. kb 22:19 Ximena Michael FNP-C is PHCP. kb 22:19 Dick Brewster MD is Attending Physician. kb 22:33 Triage completed. vc1 22:36 Arm band placed on left wrist. vc1 22:36 Patient has correct armband on for positive identification. Bed in low position. Call vc1 light in reach. Pulse ox on. NIBP on. 22:40 No provider procedures requiring assistance completed. Inserted saline lock: 20 gauge pf1 in right antecubital area, using aseptic technique. 23:00 Ronda Art RN is Primary Nurse. pf1 12/03 00:17 IV discontinued, intact, bleeding controlled, No redness/swelling at site. Pressure ha1 dressing applied. Administered Medications: 12/02 22:40 Drug: MethylPrednisoLONE IVP 125 mg Route: IVP; Site: right antecubital; pf1 23:30 Follow up: Response: No adverse reaction; No change in condition pf1 22:40 Drug: Famotidine IVP 20 mg Route: IVP; Site: right antecubital; pf1 23:30 Follow up: Response: No adverse reaction; Marked relief of symptoms pf1 22:40 Drug: diphenhydrAMINE IVP 12.5 mg Route: IVP; Site: right antecubital; pf1 23:30 Follow up: Response: No adverse reaction; No change in condition pf1 22:40 Drug: NS 0.9% IV 1000 ml Route: IV; Rate: 1000 ml; Site: right antecubital; pf1 23:30 Follow up: Response: No adverse reaction; Marked relief of symptoms pf1 23:30 Follow up: Response: No adverse reaction; Marked relief of symptoms; IV Status: pf1 Completed infusion; IV Intake: 1000ml Medication: 22:36 VIS not applicable for this client. vc1 Intake: 23:30 IV: 1000ml; Total: 1000ml. pf1 Outcome: 23:59 Discharge ordered by . kb 12/03 00:17 Discharged to home ambulatory, with family. ha1 Condition: stable Discharge instructions given to patient, family, Instructed on discharge instructions, follow up and referral plans. medication usage, Demonstrated understanding of instructions, follow-up care, medications, Prescriptions given X 1. 00:23 Patient left the ED. pf1 Signatures: Ximena Michael, GERTRUDE-C GERTRUDE-Jacqueline He Vanessa, RN RN vc1 Ashely Judd, RN RN ha1 Ronda Art, RN RN pf1
[2022-12-03 00:48] VITALS: TEMP 98.4
[2022-12-03 00:49] VITALS: O2SAT 99
[2022-12-03 00:50] VITALS: BP 131/85
== END 2022-12-03 00:23 | disposition home or self-care (01) ==
LOC: ER 22:04
DX: R21 Rash and other nonspecific skin eruption (principal); Z91.013 Allergy to seafood
CPT/HCPCS: 96361; 96375; 96374; 99284; J1200; J2930; J7030

== ENCOUNTER 2023-01-06 16:38 | Emergency (ER) | payer OTHER ==
--- NOTE | 2023-01-06 17:44 | RAD REPORT ---
EXAM DESCRIPTION: RAD - Chest Single View - 01/06/2023 5:33 pm CLINICAL HISTORY: COUGH Chest pain. COMPARISON: <Comparisons> FINDINGS: Portable technique limits examination quality. The lungs are grossly clear. The heart is normal in size. No displaced fractures. IMPRESSION: No acute intrathoracic process suspected.
--- NOTE | 2023-01-06 18:27 | ER ---
Nurse's Notes [facility] Name: Kassy Noe Age: 32 yrs Sex: Female : 1990 Arrival Date: 01/06/2023 Time: 16:38 Bed 13 Private MD: Diagnosis: Streptococcal pharyngitis;Chest pain, unspecified Presentation: 01/06 16:41 Acuity: MARION 3 aa5 16:41 Coronavirus screen: At this time, the client does not indicate any symptoms associated aa5 with coronavirus-19. Ebola Screen: Patient denies travel to an Ebola-affected area in the 21 days before illness onset. Initial Sepsis Screen: Does the patient meet any 2 criteria? HR > 90 bpm. Does the patient have a suspected source of infection? No. Patient's initial sepsis screen is negative. Risk Assessment: Do you want to hurt yourself or someone else? Patient reports no desire to harm self or others. Onset of symptoms was December 2022. 16:41 Method Of Arrival: Ambulatory aa5 16:41 Chief complaint: Patient states: SOB and chest pain x 2-3 days ago. Pt reports cold aa5 symptoms and currently taking cephalexin. Historical: - Allergies: 16:42 SHELLFISH; aa5 16:42 Bactrim; aa5 - PMHx: 16:42 PCOS; Protruding Discs L4-L5; aa5 - PSHx: 16:42 Appendectomy; Cholecystectomy; Tonsillectomy; aa5 - Immunization history:: Adult Immunizations unknown. - Social history:: Smoking status: Patient denies any tobacco usage or history of. - Family history:: not pertinent. - Hospitalizations: : No recent hospitalization is reported. Screenin:54 [facility] ED Fall Risk Assessment (Adult) History of falling in the last 3 months, cm10 including since admission No falls in past 3 months (0 pts) Confusion or Disorientation No (0 pts) Intoxicated or Sedated No (0 pts) Impaired Gait No (0 pts) Mobility Assist Device Used No (0 pt) Altered Elimination No (0 pt) Score/Fall Risk Level 0 - 2 = Low Risk Oriented to surroundings, Maintained a safe environment, Hourly rounding (assess needs \T\ fall precautionary measures) done. Abuse screen: Denies threats or abuse. Denies injuries from another. Nutritional screening: No deficits noted. Tuberculosis screening: No symptoms or risk factors identified. Assessment: 17:53 General: Appears in no apparent distress. comfortable, Behavior is calm, cooperative. cm10 Pain: Complains of pain in chest Pain does not radiate. Pain began 2-3 days ago. Neuro: No deficits noted. Level of Consciousness is awake, alert, obeys commands, Oriented to person, place, time, situation. Cardiovascular: No deficits noted. Capillary refill < 3 seconds. Respiratory: No deficits noted. Airway is patent Respiratory effort is even, unlabored, Respiratory pattern is regular, symmetrical. Derm: No deficits noted. Skin is intact, Skin is pink, warm \T\ dry. Vital Signs: 16:41 BP 156 / 105; Pulse 96; Resp 18 S; Temp 98.4(O); Pulse Ox 99% on R/A; Weight 86.18 kg aa5 (R); Height 5 ft. 5 in. (R); 18:41 BP 141 / 93; Pulse 92; Resp 18; Pulse Ox 100% on R/A; cm10 16:41 Body Mass Index 31.62 (86.18 kg, 165.1 cm) aa5 ED Course: 16:40 Patient arrived in ED. mr 16:41 Arm band placed on. aa5 16:44 Matt Daniel MD is Attending Physician. rn 16:49 Heidy Dias, JOSE is Primary Nurse. cm10 16:54 Triage completed. aa5 17:35 XRAY Chest (1 view) In Process Unspecified. EDMS 17:54 Patient has correct armband on for positive identification. Bed in low position. Call cm10 light in reach. Side rails up X2. Provided Education on: N/A. Pulse ox on. NIBP on. 17:54 No provider procedures requiring assistance completed. Patient maintains SpO2 cm10 saturation greater than 95% on room air. 18:41 Patient did not have IV access during this emergency room visit. cm10 Administered Medications: 18:34 Drug: Dexamethasone IM 10 mg Route: IM; Site: right gluteus; cm10 Medication: 18:41 VIS not applicable for this client. cm10 Outcome: 18:27 Discharge ordered by . rn 18:41 Discharged to home ambulatory, with significant other. cm10 18:41 Condition: good 18:41 Discharge instructions given to patient, Instructed on discharge instructions, follow up and referral plans. Demonstrated understanding of instructions, follow-up care, medications. 18:41 Patient left the ED. cm10 Signatures: Dispatcher [employer] Sherice Julien, MD MD jose Gutierrez Audri RN RN aa5 Heidy Dias RN RN cm10
--- NOTE | 2023-01-06 18:27 | EDPHYS ---
Physician Documentation [facility] Name: Kassy Noe Age: 32 yrs Sex: Female : 1990 Arrival Date: 01/06/2023 Time: 16:38 Bed 13 Private MD: ED Physician Matt Daniel HPI: 01/06 17:13 This 32 yrs old Female presents to ER via Ambulatory with complaints of Chest Pain. rn 17:13 The patient or guardian reports chest pain that is located primarily in the anterior rn chest wall. The pain does not radiate. Associated signs and symptoms: Pertinent positives: cough, Pertinent negatives: shortness of breath, syncope. The chest pain is described as aching. Modifying factors: The symptoms are alleviated by nothing. the symptoms are aggravated by nothing. Severity of pain: At its worst the pain was mild in the emergency department the pain is unchanged. The patient has not experienced similar symptoms in the past. The patient has been recently seen by a physician:. Pt reports diagnosed with strep yesterday, put on abx, started them last night, began to have "rattle in chest" and mild chest pain anteriorly, called her doctor, told to come to ER for chest pain. No sob. No hemoptysis. No cardiac problems. . Historical: - Allergies: 16:42 SHELLFISH; aa5 16:42 Bactrim; aa5 - PMHx: 16:42 PCOS; Protruding Discs L4-L5; aa5 - PSHx: 16:42 Appendectomy; Cholecystectomy; Tonsillectomy; aa5 - Immunization history:: Adult Immunizations unknown. - Social history:: Smoking status: Patient denies any tobacco usage or history of. - Family history:: not pertinent. - Hospitalizations: : No recent hospitalization is reported. ROS: 17:13 Constitutional: Negative for fever, chills, and weight loss, Cardiovascular: Negative rn for palpitations, and edema, Respiratory: Negative for shortness of breath, wheezing Abdomen/GI: Negative for abdominal pain, nausea, vomiting, diarrhea, and constipation, MS/Extremity: Negative for injury and deformity, Skin: Negative for injury, rash, and discoloration, Neuro: Negative for headache, weakness, numbness, tingling, and seizure. Exam: 17:13 Constitutional: This is a well developed, well nourished patient who is awake, alert, rn and in no acute distress. ENT: Mild pharyngeal erythema, absent tonsils, no stridor, no CLOTH WEIGHER Neck: Trachea midline, no masses palpated. Supple, full range of motion without nuchal rigidity, or vertebral point tenderness. No Meningismus. Cardiovascular: Regular rate and rhythm. No pulse deficits. Respiratory: Clear bilateral breath sounds. No increased work of breathing, no retractions or nasal flaring. 17:45 ECG was reviewed by the Attending Physician. rn Vital Signs: 16:41 BP 156 / 105; Pulse 96; Resp 18 S; Temp 98.4(O); Pulse Ox 99% on R/A; Weight 86.18 kg aa5 (R); Height 5 ft. 5 in. (R); 18:41 BP 141 / 93; Pulse 92; Resp 18; Pulse Ox 100% on R/A; cm10 16:41 Body Mass Index 31.62 (86.18 kg, 165.1 cm) aa5 MDM: 16:44 Patient medically screened. rn 18:26 Differential diagnosis: acute pericarditis, chest wall pain, pneumonia, pneumothorax. rn Data reviewed: vital signs, nurses notes, lab test result(s), radiologic studies, plain films, and as a result, I will discharge patient. 18:26 Counseling: I had a detailed discussion with the patient and/or guardian regarding: the rn historical points, exam findings, and any diagnostic results supporting the discharge/admit diagnosis, lab results, radiology results, the need for outpatient follow up, to return to the emergency department if symptoms worsen or persist or if there are any questions or concerns that arise at home. Special discussion: I discussed with the patient/guardian in detail that at this point there is no indication for admission to the hospital. It is understood, however, that if the symptoms persist or worsen the patient needs to return immediately for re-evaluation. 01/06 16:51 Order name: SARS-COV-2 RT PCR; Complete Time: 17:58 rn 01/06 16:51 Order name: Flu; Complete Time: 17:58 rn 01/06 16:51 Order name: XRAY Chest (1 view); Complete Time: 17:45 rn 01/06 16:51 Order name: EKG; Complete Time: 16:52 rn 01/06 16:51 Order name: EKG - Nurse/Tech; Complete Time: 17:15 rn EC:45 Rate is 93 beats/min. Rhythm is regular. QRS [place] is Normal. CA interval is normal. QRS rn interval is normal. QT interval is normal. No Q waves. T waves are Normal. No ST changes noted. Clinical impression: NSR w/ Non-specific ST/T Changes. Interpreted by me. Reviewed by me. Administered Medications: 18:34 Drug: Dexamethasone IM 10 mg Route: IM; Site: right gluteus; cm10 Disposition Summary: 01/06/23 18:27 Discharge Ordered Location: Home rn Problem: new rn Symptoms: have improved rn Condition: Stable rn Diagnosis - Streptococcal pharyngitis rn - Chest pain, unspecified rn Followup: rn - With: Private Physician - When: As needed - Reason: Recheck today's complaints, Re-evaluation by your physician Discharge Instructions: - Discharge Summary Sheet rn - Nonspecific Chest Pain, Adult rn - Strep Throat, Adult rn Forms: - Medication Reconciliation Form rn - Thank You Letter rn - Antibiotic orthopedic rn - Prescription Opioid Use rn - Patient Portal Instructions rn Signatures: Dispatcher [employer] Matt Miranda MD MD rn Calderon, Audri, RN RN lee5 Heidy Dias, RN RN cm10
[2023-01-06] MEDS ORDERED: dexAMETHasone 10 MG/ML VIAL ONE (18:40)
[2023-01-06 18:55] VITALS: TEMP 98.4
[2023-01-06 18:56] VITALS: BP 141/93; O2SAT 100
--- NOTE | 2023-01-07 13:17 | EKG ---
Test Date: 2023-01-06 Test Time: 17:12:40 Radiological Technologist: ALEX MEASUREMENT RESULTS: Intervals: Rate: 97 WA: 174 QRSD: 82 QT: 368 QTc: 467 [place]: P: 44 WA: 174 QRS: 4 T: 26 INTERPRETIVE STATEMENTS: Normal sinus rhythm Minimal voltage criteria for LVH, may be normal variant Borderline ECG No previous ECG available for comparison Electronically Signed On 01-07-23 13:15:33 CDT by Gaetano Fuentes
== END 2023-01-06 18:41 | disposition home or self-care (01) ==
LOC: ER 16:38
DX: J02.0 Streptococcal pharyngitis (principal); Z20.822 Contact with and (suspected) exposure to COVID-19; Z88.1 Allergy status to other antibiotic agents; Z91.013 Allergy to seafood
CPT/HCPCS: 93005; 87635; 87804 ×2; 71045; 96372; 99284; J1100

== ENCOUNTER → 2023-09-04 | Emergency (ER) | payer OTHER ==
[~2023-09-04] MED LIST: KETOROLAC 30 MG/ML INJ ONE; METHYLPREDNISOLONE 125 MG INJ ONE
--- OUTSIDE RECORDS SUMMARY | 2023-09-04 09:43 | XMS REPORT | Continuity of Care Document ---
Author Name Unknown Address [address] [place] [address] [place] [address] [employer] Address [address] [place] [address]. [address] [place] [address] Care Team Providers Care Junction Maker Name Role Phone [email or web address] Attending Clinician Unavaila ble [email or web address] Admitting Clinician Unavaila ble Encounters Start Date/Time End Date/Time Encounter Type Admission Type Attending Clinicians Care Facility Care Department Encounter ID Source 2023-04-18 00:00:00 2023-04-18 00:00:00 Outpatient [email or web address] [facility] [id number] [facility]
--- NOTE | 2023-09-04 10:20 | RAD REPORT ---
EXAM DESCRIPTION: Michael Single View09/04/2023 10:11 am CLINICAL HISTORY: Chest pain COMPARISON: 2021 FINDINGS: The lungs appear clear of acute infiltrate. The heart is normal size IMPRESSION: No acute abnormalities displayed
[2023-09-04 10:22] LABS: Absolute Eosinophils 0.1 K/uL (0-0.5); Absolute Lymphocytes (CBC) 1.9 K/uL (0.7-4.9); Absolute Monocytes 0.3 K/uL (0.1-1.3); Absolute Neutrophil 3.3 K/uL (1.8-8.0); Basophils % 0.6 % (0-1.3); Eosinophils % 1.2 % (0-4.4); Hematocrit 39.6 % (36.0-45.0); Hemoglobin 13.5 g/dL (12.0-15.0); Lymphocytes % 34.2 % (15.3-44.8); MCH 29.1 pg (27.0-35.0); MCHC 34.1 g/dL (32.0-36.0); MCV 85.4 fL (80-100); MPV 7.8 fL (7.6-11.3); Monocytes % 5.6 % (3.3-12.3); Neutrophils % 58.4 % (41.7-73.7); Platelets 243 thou/uL (152-406); RBC Red Blood Cell Count 4.64 M/uL (3.86-4.86); Red Cell Distribution Width 13.3 % (12.1-15.2)
[2023-09-04 10:40] LABS: Albumin 3.6 g/dL (3.4-5.0); Bilirubin Total 0.4 mg/dL (0.2-1.0); Globulin 3.5 g/dL (2.3-3.5); Protein, Total 7.1 g/dL (6.4-8.2)
[2023-09-04 11:12] LABS: Specific Gravity 1.023 (1.005-1.030)
[2023-09-04 11:22] LABS: Specific Gravity 1.023 (1.005-1.030); Urine Bacteria <20 /HPF (<20); Urine Bilirubin NEGATIVE (Negative); Urine Blood Negative (Negative); Urine Clarity Extremely Turbid (Clear); Urine Color Light-Yellow (Yellow); Urine Culture Reflex Order NOT NEEDED; Urine Glucose NEGATIVE (Negative); Urine Ketones NEGATIVE (Negative); Urine Microscopic Reflex YN ORDER UMIC; Urine Mucus Slight /HPF (None Seen); Urine Nitrite NEGATIVE (Negative); Urine Protein NEGATIVE (Negative); Urine RBC <5 /HPF (None Seen); Urine Urobilinogen Normal (Normal); Urine pH 6.5 (5.0-7.0)
--- NOTE | 2023-09-04 12:00 | RAD REPORT ---
EXAM DESCRIPTION: CT - Abdomen Pelvis W Contrast - 09/04/2023 11:37 am CLINICAL HISTORY: Abdominal pain COMPARISON: none. TECHNIQUE: Computed axial tomography of the abdomen pelvis was obtained. 100 cc Isovue-300 was admin istered intravenously. Oral contrast was not requested which limits evaluation of bowel and appendix All CT scans are performed using dose optimization technique as appropriate and may include automated exposure control or mA/KV adjustment according to patient size. FINDINGS: Mild fatty liver The spleen, pancreas, adrenals and kidneys unremarkable Cholecystectomy No adnexal mass There is no evidence of diverticulitis. IMPRESSION: No acute abnormality is displayed.
--- NOTE | 2023-09-04 12:33 | ER ---
Nurse's Notes [facility] Name: Kassy Noe Age: 32 yrs Sex: Female : 1990 Arrival Date: 09/04/2023 Time: 09:39 Bed 16 Private MD: Diagnosis: Abdominal pain, unspecified Presentation: 09/03 09:59 Chief complaint: RUQ pain that radiates to back and right shoulder and nausea since hb last night. Coronavirus screen: At this time, the client does not indicate any symptoms associated with coronavirus-19. Ebola Screen: No symptoms or risks identified at this time. Initial Sepsis Screen: Does the patient meet any 2 criteria? No. Patient's initial sepsis screen is negative. Does the patient have a suspected source of infection? No. Patient's initial sepsis screen is negative. Risk Assessment: Do you want to hurt yourself or someone else? Patient reports no desire to harm self or others. Onset of symptoms was September 03, 2023. 09:59 Method Of Arrival: Ambulatory hb 09:59 Acuity: MARION 3 hb Triage Assessment: 10:02 General: Appears in no apparent distress. uncomfortable, Behavior is calm, cooperative. hb Pain: Pain currently is 7 out of 10 on a pain scale. Neuro: Level of Consciousness is awake, alert, obeys commands, Oriented to person, place, time, situation. Cardiovascular: Patient's skin is warm and dry. Respiratory: Respiratory effort is even, unlabored, Respiratory pattern is regular, symmetrical. GI: Reports upper abdominal pain, nausea. Historical: - Allergies: 10:02 Bactrim; hb 10:02 SHELLFISH; hb - Home Meds: 10:02 control [Active]; losartan-hydrochlorothiazide oral [Active]; hb - PMHx: 10:02 PCOS; Protruding Discs L4-L5; Hypertension (Tonsillectomy); hb - PSHx: 10:02 Appendectomy; Cholecystectomy; Tonsillectomy; hb - Immunization history:: Adult Immunizations up to date. - Social history:: Smoking status: Patient denies any tobacco usage or history of. Screenin:[facility] ED Fall Risk Assessment (Adult) History of falling in the last 3 months, kc6 including since admission No falls in past 3 months (0 pts) Confusion or Disorientation No (0 pts) Intoxicated or Sedated No (0 pts) Impaired Gait No (0 pts) Mobility Assist Device Used No (0 pt) Altered Elimination No (0 pt) Score/Fall Risk Level 0 - 2 = Low Risk. Abuse screen: Denies threats or abuse. Denies injuries from another. Nutritional screening: No deficits noted. Tuberculosis screening: No symptoms or risk factors identified. Assessment: 10:14 General: Appears in no apparent distress. comfortable, well groomed, well developed, kc6 Behavior is calm, cooperative, appropriate for age. Pain: Complains of pain in back and right upper quadrant. Neuro: Level of Consciousness is awake, alert, obeys commands, Oriented to person, place, time, situation, Appropriate for age. Cardiovascular: Capillary refill < 3 seconds. Respiratory: Airway is patent Trachea midline Respiratory effort is even, unlabored, Respiratory pattern is regular, symmetrical. GI: Abdomen is flat, non-distended, Bowel sounds present X 4 quads. Abd is soft X 4 quads Abdomen is tender to palpation in right upper quadrant Reports nausea, Patient currently denies diarrhea, vomiting. : No signs and/or symptoms were reported regarding the genitourinary system. EENT: No signs and/or symptoms were reported regarding the EENT system. Derm: No signs and/or symptoms reported regarding the dermatologic system. Skin is intact, is healthy with good turgor, Skin is pink, warm \T\ dry. Musculoskeletal: No signs and/or symptoms reported regarding the musculoskeletal system. Circulation, motion, and sensation intact. Capillary refill < 3 seconds, Range of motion: intact in all extremities. 11:11 Reassessment: Patient appears in no apparent distress at this time. No changes from kc6 previously documented assessment. Patient and/or family updated on plan of care and expected duration. Pain level reassessed. Patient is alert, oriented x 3, equal unlabored respirations, skin warm/dry/pink. 12:37 Reassessment: Patient appears in no apparent distress at this time. No changes from kc6 previously documented assessment. Patient and/or family updated on plan of care and expected duration. Pain level reassessed. Patient is alert, oriented x 3, equal unlabored respirations, skin warm/dry/pink. Vital Signs: 09:59 BP 154 / 90; Pulse 90; Resp 16; Temp 98.4(O); Pulse Ox 100% on R/A; Weight 86.18 kg; hb Height 5 ft. 5 in. ; Pain 7/10; 11:17 BP 122 / 83; Pulse 79; Resp 16 S; Pulse Ox 100% on R/A; kc6 12:37 BP 122 / 74; Pulse 81; Resp 16 S; Pulse Ox 98% on R/A; kc6 09:59 Body Mass Index 31.62 (86.18 kg, 165.1 cm) hb 09:59 Pain Scale: Adult hb ED Course: 09:45 Patient arrived in ED. mg5 09:45 Dick Brewster MD is Attending Physician. rt 09:49 Kristie Barton, JOSE is Primary Nurse. kc6 09:52 Patient has correct armband on for positive identification. Bed in low position. Call kc6 light in reach. Side rails up X 1. Client placed on continuous cardiac and pulse oximetry monitoring. NIBP monitoring applied. Pulse ox on. NIBP on. 09:52 Patient maintains SpO2 saturation greater than 95% on room air. kc6 10:01 Triage completed. hb 10:02 Arm band placed on. hb 10:04 Thermoregulation: warm blanket given to patient. hb 10:06 EKG done, by ED staff, reviewed by Dick Brewster MD. hb 10:13 Chest Single View XRAY In Process Unspecified. EDMS 10:13 Inserted saline lock: 20 gauge in left antecubital area, using aseptic technique. Blood kc6 collected. 11:39 CT Abd/Pelvis - IV Contrast Only In Process Unspecified. EDMS 12:57 No provider procedures requiring assistance completed. IV discontinued, intact, kc6 bleeding controlled, No redness/swelling at site. Pressure dressing applied. Administered Medications: 11:17 Drug: Ketorolac IVP 15 mg IVP once Route: IVP; Site: left antecubital; kc6 11:17 Drug: MethylPrednisoLONE IVP 125 mg IVP once Route: IVP; Site: left antecubital; kc6 Medication: 12:57 VIS not applicable for this client. kc6 Outcome: 12:32 Discharge ordered by MD. rt 12:57 Discharged to home ambulatory, kc6 12:57 Condition: good 12:57 Discharge instructions given to patient, Instructed on discharge instructions, follow up and referral plans. Demonstrated understanding of instructions, follow-up care, 12:57 Patient left the ED. kc6 Signatures: Dispatcher [employer] EDEli Benson RN RN hb Campbell, Kaitlyn, RN RN kc6 Dick Brewster MD MD rt Mari Curtis mg5 Corrections: (The following items were deleted from the chart) 10:04 09:52 Client placed on continuous cardiac and pulse oximetry monitoring. NIBP hb monitoring applied. kc6
--- NOTE | 2023-09-04 12:33 | EDPHYS ---
Physician Documentation [facility] Name: Kassy Noe Age: 32 yrs Sex: Female : 1990 Arrival Date: 09/04/2023 Time: 09:39 Bed 16 Private MD: ED Physician Dick Brewster HPI: 09/03 10:01 This 32 yrs old Female presents to ER via Ambulatory with complaints of Pain - rt Side/Shoulder/ABD. 10:01 Patient with prior cholecystectomy presents to the ED with about 2 days of right upper rt quadrant pain that radiates to the back as well as through the chest into the right shoulder. She has associated nausea without vomiting. Patient denies other acute complaints at this time. Symptoms are moderate in severity, no other aggravating relieving factors.. Historical: - Allergies: 10:02 Bactrim; hb 10:02 SHELLFISH; hb - Home Meds: 10:02 control [Active]; losartan-hydrochlorothiazide oral [Active]; hb - PMHx: 10:02 PCOS; Protruding Discs L4-L5; Hypertension (Tonsillectomy); hb - PSHx: 10:02 Appendectomy; Cholecystectomy; Tonsillectomy; hb - Immunization history:: Adult Immunizations up to date. - Social history:: Smoking status: Patient denies any tobacco usage or history of. ROS: 10:01 Constitutional: Negative for fever, chills, and weight loss, Respiratory: Negative for rt shortness of breath, cough, wheezing, and pleuritic chest pain, Skin: Negative for injury, rash, and discoloration, Neuro: Negative for headache, weakness, numbness, tingling, and seizure, 10:01 Cardiovascular: Positive for chest pain, Negative for edema, 10:01 Abdomen/GI: Positive for abdominal pain, nausea, Exam: 10:01 Constitutional: This is a well developed, well nourished patient who is awake, alert, rt and in no acute distress. Head/Face: Normocephalic, atraumatic. Chest/axilla: Normal chest wall appearance and motion. Nontender with no deformity. No lesions are appreciated. Cardiovascular: Regular rate and rhythm with a normal S1 and S2. No gallops, murmurs, or rubs. Normal PMI, no JVD. No pulse deficits. Respiratory: Lungs have equal breath sounds bilaterally, clear to auscultation and percussion. No rales, rhonchi or wheezes noted. No increased work of breathing, no retractions or nasal flaring. Skin: Warm, dry with normal turgor. Normal color with no rashes, no lesions, and no evidence of cellulitis. MS/ Extremity: Pulses equal, no cyanosis. Neurovascular intact. Full, normal range of motion. Neuro: Awake and alert, GCS 15, oriented to person, place, time, and situation. Cranial nerves II-XII grossly intact. Motor strength 5/5 in all extremities. Sensory grossly intact. Cerebellar exam normal. Normal gait. Psych: Awake, alert, with orientation to person, place and time. Behavior, mood, and affect are within normal limits. 10:01 Neck: Tenderness over the right superior trapezius muscle, no midline tenderness, 10:01 Abdomen/GI: Mild right upper quadrant tenderness without rebound, guarding, distention, no costovertebral angle tenderness, 10:06 ECG was reviewed by the Attending Physician. rt Vital Signs: 09:59 BP 154 / 90; Pulse 90; Resp 16; Temp 98.4(O); Pulse Ox 100% on R/A; Weight 86.18 kg; hb Height 5 ft. 5 in. ; Pain 7/10; 11:17 BP 122 / 83; Pulse 79; Resp 16 S; Pulse Ox 100% on R/A; kc6 12:37 BP 122 / 74; Pulse 81; Resp 16 S; Pulse Ox 98% on R/A; kc6 09:59 Body Mass Index 31.62 (86.18 kg, 165.1 cm) hb 09:59 Pain Scale: Adult hb MDM: 09:49 Patient medically screened. rt 13:53 Differential Diagnosis Musculoskeletal pain, bili Yael, kidney stone, bowel obstruction. rt Data reviewed: vital signs, nurses notes, lab test result(s), radiologic studies. I considered the following discharge prescriptions or medication management in the emergency department Medications were administered in the Emergency Department. See MAR. Independent interpretation of the following test(s) in the Emergency Department CT Scan: My interpretation is No bowel obstruction seen interpretation of CT scan images. Test considered but Not performed: Ultrasound Symptoms not consistent with ovarian pathology, ultrasound is not indicated. Care significantly affected by the following chronic conditions: Hypertension. Counseling: I had a detailed discussion with the patient and/or guardian regarding the historical points, exam findings, and any diagnostic results supporting the discharge/admit diagnosis, lab results, radiology results, the need for outpatient follow up, to return to the emergency department if symptoms worsen or persist or if there are any questions or concerns that arise at home. Response to treatment: the patient's symptoms have markedly improved after treatment. 09/03 09:57 Order name: CBC with Diff; Complete Time: 11:11 rt 09/03 09:57 Order name: CMP; Complete Time: 11:11 rt 09/03 09:57 Order name: Lipase; Complete Time: 11:11 rt 09/03 09:57 Order name: Test, Urine; Complete Time: 11:24 rt 09/03 09:57 Order name: Urinalysis w/ reflexes; Complete Time: 11:24 rt 09/03 09:57 Order name: Troponin High Sensitivity; Complete Time: 11:11 rt 09/03 09:57 Order name: CT Abd/Pelvis - IV Contrast Only; Complete Time: 12:03 rt 09/03 09:57 Order name: Chest Single View XRAY; Complete Time: 11:11 rt 09/03 09:57 Order name: EKG; Complete Time: 09:58 rt 09/03 09:57 Order name: IV Saline Lock; Complete Time: 10:13 rt 09/03 09:57 Order name: Labs collected and sent; Complete Time: 10:13 rt 09/03 09:57 Order name: EKG - Nurse/Tech; Complete Time: 10:06 rt EC:06 Rate is 80 beats/min. Rhythm is regular, Normal Sinus Rhythm with No ectopy. QRS [place] rt is Normal. [place] interval is normal. QRS interval is normal. QT interval is normal. No Q waves. T waves are Normal. No ST changes noted. Interpreted by me. Administered Medications: 11:17 Drug: Ketorolac IVP 15 mg IVP once Route: IVP; Site: left antecubital; kc6 11:17 Drug: MethylPrednisoLONE IVP 125 mg IVP once Route: IVP; Site: left antecubital; kc6 Disposition Summary: 09/04/23 12:32 Discharge Ordered Notes: Location: Home rt Problem: new rt Symptoms: have improved rt Condition: Stable rt Diagnosis - Abdominal pain, unspecified rt Followup: rt - With: Private Physician - When: 2 - 3 days - Reason: Discharge Instructions: - Discharge Summary Sheet rt - Abdominal Pain, Adult rt Forms: - Medication Reconciliation Form rt - Thank You Letter rt - Antibiotic Education rt - Prescription Opioid Use rt - Patient Portal Instructions rt - Leadership Thank You Letter rt Signatures: Dispatcher [employer] Eli Aguirre RN RN hb Campbell, Kaitlyn, RN RN kc6 Dick Brewster MD MD rt
[2023-09-04 13:02] VITALS: TEMP 98.4
[2023-09-04 13:23] VITALS: BP 122/74; O2SAT 98
== END ==
LOC: ER 09:39
DX: R10.11 Right upper quadrant pain (principal); Z88.1 Allergy status to other antibiotic agents; Z91.013 Allergy to seafood
CPT/HCPCS: 85025; 81001; 36415; 81025; 84484; 83690; 80053; 74177; 71045; 96375; 96374; 99285; Q9967; J2930; 93005